=== PATIENT | male | born 1960 | race Caucasian/White ===

== ENCOUNTER 2021-04-24 18:49 | Inpatient (IN) ==
[2021-04-24] MEDS ORDERED: *HR* Succinylcholine 200 MG/10 ML VIAL IVP ONE (19:17)
[2021-04-24] MEDS ORDERED: *HR* Rocuronium Bromide 50 MG/5 ML VIAL ONE (19:17)
[2021-04-24] MEDS ORDERED: *HR* Propofol 200 MG/20 ML VIAL IVP ONE (19:18)
[2021-04-24] MEDS ORDERED: *HR* Midazolam HCl 2 MG/2 ML VIAL ONE (19:22)
[2021-04-24] MEDS ORDERED: *HR* FentaNYL (PF) 100 MCG/2 ML VIAL ONE (19:22)
[2021-04-24] MEDS ORDERED: Dexmedetomidine HCl 400 MCG/100 ML MLS IVC ONE (20:56)
[2021-04-24] MEDS ORDERED: Lidocaine Jelly 6ml 1 APPL/6 ML JEL.PF.APP ONE (21:31)
[2021-04-24] MEDS ORDERED: Lidocaine/EPI 1:100k 1% 50 ML VIAL ONE (21:31)
[2021-04-24] MEDS ORDERED: Naloxone 0.4 MG/ML INJ IVP PRN (22:04)
[2021-04-24] MEDS ORDERED: Artificial Tears SOLN 15 ML BOTTLE BOTH EYES PRN (22:09)
[2021-04-24] MEDS: Norepinephrine 4 MG/254 ML IV.SOLN IVC SCH (22:21)
[2021-04-24] MEDS: FentaNYL (PF) 1,000 MCG/100 ML IV.SOLN IVC SCH (22:29)
[2021-04-24] MEDS: Midazolam HCl 50 MG/100 ML IV.SOLN IVC SCH (22:29)
[2021-04-24 22:41] LABS: ABG Base Excess 7 mEq/L (-2 to 3); ABG HCO3 33 mEq/L (21-27); ABG Oxygen Saturation 100 % (95-98); ABG PCO2 54 mmHg (35-45); ABG PO2 404 mmHg (85-104); ABG TCO2 35 mEq/L (20-26); Blood Gas Modality ASSIST CONTROL; Blood Gas VT 450 cc
[2021-04-24] MEDS: Artificial Tears SOLN 15 ML BOTTLE BOTH EYES SCH (23:10)
[2021-04-25] MEDS: FentaNYL (PF) 1,000 MCG/100 ML IV.SOLN IVC SCH ×4 (02:15→22:00)
[2021-04-25] MEDS: Artificial Tears SOLN 15 ML BOTTLE BOTH EYES SCH ×6 (03:07→23:03)
[2021-04-25] MEDS: Norepinephrine 4 MG/254 ML IV.SOLN IVC SCH ×3 (03:08→19:22)
[2021-04-25 03:41] LABS: Basophils % 0.2 %; Hematocrit 35.7 % (37.5-50.1); Hemoglobin 11.3 g/dL (12.9-16.9); Immature Granulocytes % 1.3 % (0-4); Lymphocytes # 1.7 K/mcL (0.6-4.6); Lymphocytes % 9.2 %; Mean Corpuscular HGB Conc 31.7 g/dL (31.6-35.5); Mean Corpuscular Hemoglobin 30.6 pg (28.0-33.3); Mean Corpuscular Volume 96.7 fL (83.0-100.0); Mean Platelet Volume 9.9 fL (9.4-12.4); Monocytes # 0.5 K/mcL (0.0-1.3); Monocytes % 2.9 %; Neutrophils # 16.1 K/mcL (1.6-8.9); Platelet Count 193 K/mcL (140-400); Red Blood Count 3.69 M/mcL (4.19-5.50); Red Cell Distribution Width 15.9 % (11.5-14.5); Segmented Neutrophils % 86.4 %; White Blood Count 18.6 K/mcL (4.3-11.1)
[2021-04-25 03:49] LABS: Alanine Aminotransferase 26 Units/L (7-52); Albumin 2.7 g/dL (3.5-5.7); Alkaline Phosphatase 64 Units/L (34-104); Aspartate Amino Transferase 23 Units/L (13-39); BUN/Creatinine Ratio 26 (6-26); Bilirubin,Direct 0.1 mg/dL (0.0-0.2); Bilirubin,Indirect 0.4 mg/dL (0.0-1.0); Bilirubin,Total 0.5 mg/dL (0.3-1.0); Blood Urea Nitrogen 25 mg/dL (8-23); Calcium 8.7 mg/dL (8.6-10.3); Carbon Dioxide 32 mEq/L (23-29); Chloride 103 mEq/L (98-107); Globulin 2.6 g/dL (2.4-3.5); Glucose 156 mg/dL (70-105); INR 1.2; Magnesium 2.1 mg/dL (1.6-2.6); Osmolality,Calculated 300 (280-300); Potassium 4.7 mEq/L (3.5-5.1); Prothrombin Time 13.4 Seconds (9.4-12.1); Sodium 141 mEq/L (136-145); Total Protein 5.3 g/dL (6.4-8.9); eGFR For African Americans > 60 (> 60); eGFR For Non-African Americans > 60 (> 60)
[2021-04-25] MEDS: Ipratropium/Albuterol Neb 3 ML IH SCH ×4 (03:58→19:57)
[2021-04-25 04:25] LABS: ABG Base Excess 6 mEq/L (-2 to 3); ABG HCO3 31 mEq/L (21-27); ABG Oxygen Saturation 96 % (95-98); ABG PCO2 44 mmHg (35-45); ABG PH 7.45 pH Units (7.32-7.45); ABG PO2 77 mmHg (85-104); ABG TCO2 32 mEq/L (20-26); Blood Gas Modality ASSIST CONTROL; Blood Gas VT 450 cc
[2021-04-25] MEDS ORDERED: methylPREDNISolone 125 MG/2 ML VIAL IVP SCH (08:00)
[2021-04-25] MEDS: Chlorhexidine Rinse 15 ML MOUTHWASH MM SCH ×2 (08:14→19:21)
[2021-04-25] MEDS: Piperacillin/Tazobactam 3.375 GM in 0.9 % Sodium Chloride Mini Bag 100 ML IVPB SCH ×3 (08:15→23:10)
[2021-04-25] MEDS: Pantoprazole 40 MG VIAL IVP SCH (08:16)
[2021-04-25] MEDS ORDERED: *HR* Metoprolol 5 MG/5 ML VIAL IVP ONE (14:36)
[2021-04-25 15:26] LABS: BUN/Creatinine Ratio 28 (6-26); Blood Urea Nitrogen 34 mg/dL (8-23); Calcium 8.9 mg/dL (8.6-10.3); Carbon Dioxide 32 mEq/L (23-29); Chloride 104 mEq/L (98-107); Glucose 159 mg/dL (70-105); Osmolality,Calculated 303 (280-300); Potassium 4.9 mEq/L (3.5-5.1); Sodium 141 mEq/L (136-145); eGFR For African Americans > 60 (> 60); eGFR For Non-African Americans > 60 (> 60)
[2021-04-25] MEDS: methylPREDNISolone 125 MG/2 ML VIAL IVP SCH (17:56)
[2021-04-25] MEDS: *HR* Heparin 5,000 UNIT/ML VIAL SQ SCH (17:56)
[2021-04-25] MEDS: Midazolam HCl 50 MG/100 ML IV.SOLN IVC SCH (19:17)
[2021-04-26] MEDS: FentaNYL (PF) 1,000 MCG/100 ML IV.SOLN IVC SCH ×3 (03:19→20:10)
[2021-04-26] MEDS: Artificial Tears SOLN 15 ML BOTTLE BOTH EYES SCH ×6 (03:20→23:28)
[2021-04-26 03:32] LABS: Basophils % 0.2 %; Hematocrit 38.3 % (37.5-50.1); Hemoglobin 11.8 g/dL (12.9-16.9); Immature Granulocytes % 1.8 % (0-4); Lymphocytes # 1.2 K/mcL (0.6-4.6); Lymphocytes % 8.3 %; Mean Corpuscular HGB Conc 30.8 g/dL (31.6-35.5); Mean Corpuscular Hemoglobin 29.9 pg (28.0-33.3); Mean Platelet Volume 9.9 fL (9.4-12.4); Monocytes % 6.7 %; Neutrophils # 11.7 K/mcL (1.6-8.9); Platelet Count 163 K/mcL (140-400); Red Blood Count 3.95 M/mcL (4.19-5.50); Red Cell Distribution Width 15.6 % (11.5-14.5); White Blood Count 14.1 K/mcL (4.3-11.1)
[2021-04-26] MEDS: Ipratropium/Albuterol Neb 3 ML IH SCH ×4 (03:54→21:48)
[2021-04-26 04:01] LABS: ABG Base Excess 7 mEq/L (-2 to 3); ABG HCO3 34 mEq/L (21-27); ABG Oxygen Saturation 96 % (95-98); ABG PCO2 63 mmHg (35-45); ABG PH 7.34 pH Units (7.32-7.45); ABG PO2 89 mmHg (85-104); ABG TCO2 36 mEq/L (20-26); Blood Gas Modality ASSIST CONTROL; Blood Gas VT 450 cc
[2021-04-26 04:14] LABS: Alanine Aminotransferase 30 Units/L (7-52); Alkaline Phosphatase 63 Units/L (34-104); Aspartate Amino Transferase 39 Units/L (13-39); BUN/Creatinine Ratio 35 (6-26); Bilirubin,Total 0.3 mg/dL (0.3-1.0); Blood Urea Nitrogen 34 mg/dL (8-23); Calcium 9.1 mg/dL (8.6-10.3); Carbon Dioxide 32 mEq/L (23-29); Chloride 105 mEq/L (98-107); Globulin 2.9 g/dL (2.4-3.5); Glucose 151 mg/dL (70-105); Magnesium 2.3 mg/dL (1.6-2.6); Osmolality,Calculated 307 (280-300); Phosphorous 3.1 mg/dL (2.7-4.5); Potassium 4.4 mEq/L (3.5-5.1); Sodium 143 mEq/L (136-145); Total Protein 5.9 g/dL (6.4-8.9); eGFR For African Americans > 60 (> 60); eGFR For Non-African Americans > 60 (> 60)
[2021-04-26] MEDS: *HR* Heparin 5,000 UNIT/ML VIAL SQ SCH ×2 (05:01→17:09)
[2021-04-26] MEDS: methylPREDNISolone 125 MG/2 ML VIAL IVP SCH ×2 (05:01→17:09)
[2021-04-26] MEDS: Pantoprazole 40 MG VIAL IVP SCH (08:34)
[2021-04-26] MEDS: Piperacillin/Tazobactam 3.375 GM in 0.9 % Sodium Chloride Mini Bag 100 ML IVPB SCH ×3 (08:35→23:28)
[2021-04-26] MEDS ORDERED: D10% in Water 500 ML IVC PRN (11:44)
[2021-04-26] MEDS: Chlorhexidine Rinse 15 ML MOUTHWASH MM SCH ×2 (15:26→20:37)
[2021-04-26] MEDS ORDERED: Piperacillin/Tazobactam 3.375 GM VIAL ONE (17:00)
[2021-04-26] MEDS ORDERED: Clinimix E 5%-15% SOLUTION 2,000 ML with MVI, adult with vitamin K 10 ML IVC SCH (17:00)
[2021-04-26] MEDS: Norepinephrine 4 MG/254 ML IV.SOLN IVC SCH ×3 (17:40→21:15)
[2021-04-26] MEDS: Midazolam HCl 50 MG/100 ML IV.SOLN IVC SCH (21:15)
[2021-04-27] MEDS: Artificial Tears SOLN 15 ML BOTTLE BOTH EYES SCH ×6 (03:03→23:36)
[2021-04-27] MEDS: Norepinephrine 4 MG/254 ML IV.SOLN IVC SCH ×3 (03:03→20:30)
[2021-04-27] MEDS: Ipratropium/Albuterol Neb 3 ML IH SCH ×4 (03:51→20:22)
[2021-04-27 03:58] LABS: ABG Base Excess 6 mEq/L (-2 to 3); ABG HCO3 33 mEq/L (21-27); ABG Oxygen Saturation 95 % (95-98); ABG PCO2 57 mmHg (35-45); ABG PH 7.37 pH Units (7.32-7.45); ABG PO2 79 mmHg (85-104); ABG TCO2 35 mEq/L (20-26); Blood Gas VT 450 cc
[2021-04-27 04:35] LABS: Basophils % 0.2 %; Hematocrit 35.7 % (37.5-50.1); Hemoglobin 11.1 g/dL (12.9-16.9); Immature Granulocytes % 1.3 % (0-4); Lymphocytes # 0.8 K/mcL (0.6-4.6); Mean Corpuscular HGB Conc 31.1 g/dL (31.6-35.5); Mean Corpuscular Hemoglobin 30.2 pg (28.0-33.3); Mean Platelet Volume 10.2 fL (9.4-12.4); Monocytes % 8.6 %; Neutrophils # 9.3 K/mcL (1.6-8.9); Platelet Count 141 K/mcL (140-400); Red Blood Count 3.68 M/mcL (4.19-5.50); Red Cell Distribution Width 15.9 % (11.5-14.5); Segmented Neutrophils % 82.9 %; White Blood Count 11.2 K/mcL (4.3-11.1)
[2021-04-27 04:48] LABS: BUN/Creatinine Ratio 37 (6-26); Blood Urea Nitrogen 32 mg/dL (8-23); Calcium 8.7 mg/dL (8.6-10.3); Carbon Dioxide 34 mEq/L (23-29); Chloride 106 mEq/L (98-107); Glucose 171 mg/dL (70-105); Magnesium 2.3 mg/dL (1.6-2.6); Osmolality,Calculated 309 (280-300); Phosphorous 2.9 mg/dL (2.7-4.5); Potassium 4.1 mEq/L (3.5-5.1); Sodium 144 mEq/L (136-145); Triglycerides 187 mg/dL (< 150); eGFR For African Americans > 60 (> 60); eGFR For Non-African Americans > 60 (> 60)
[2021-04-27] MEDS: methylPREDNISolone 125 MG/2 ML VIAL IVP SCH ×2 (05:12→17:08)
[2021-04-27] MEDS: *HR* Heparin 5,000 UNIT/ML VIAL SQ SCH ×2 (05:12→17:08)
[2021-04-27] MEDS: FentaNYL (PF) 1,000 MCG/100 ML IV.SOLN IVC SCH (05:12)
[2021-04-27] MEDS: Midazolam HCl 50 MG/100 ML IV.SOLN IVC SCH (05:13)
[2021-04-27] MEDS: Chlorhexidine Rinse 15 ML MOUTHWASH MM SCH ×2 (07:53→20:29)
[2021-04-27] MEDS: Piperacillin/Tazobactam 3.375 GM in 0.9 % Sodium Chloride Mini Bag 100 ML IVPB SCH ×3 (07:53→23:53)
[2021-04-27] MEDS: Pantoprazole 40 MG VIAL IVP SCH (07:53)
[2021-04-27] MEDS: Insulin LISPRO 300 UNITS/3 ML VIAL SUBQ SCH ×4 (12:30→23:36)
[2021-04-27] MEDS ORDERED: Clinimix E 5%-15% SOLUTION 2,000 ML with MVI, adult with vitamin K 10 ML IVC SCH (17:00)
[2021-04-27] MEDS: Dexmedetomidine HCl 400 MCG/100 ML MLS IVC SCH (17:07)
[2021-04-27 22:10] LABS: ABG Base Excess 3 mEq/L (-2 to 3); ABG HCO3 35 mEq/L (21-27); ABG Oxygen Saturation 95 % (95-98); ABG PCO2 95 mmHg (35-45); ABG PH 7.17 pH Units (7.32-7.45); ABG PO2 103 mmHg (85-104); ABG TCO2 38 mEq/L (20-26)
[2021-04-28] MEDS: Artificial Tears SOLN 15 ML BOTTLE BOTH EYES SCH ×6 (03:19→23:12)
[2021-04-28] MEDS: Dexmedetomidine HCl 400 MCG/100 ML MLS IVC SCH ×2 (03:47→15:04)
[2021-04-28 04:04] LABS: Basophils % 0.2 %; Hematocrit 35.1 % (37.5-50.1); Hemoglobin 10.8 g/dL (12.9-16.9); Immature Granulocytes % 1.6 % (0-4); Lymphocytes # 0.7 K/mcL (0.6-4.6); Lymphocytes % 7.1 %; Mean Corpuscular HGB Conc 30.8 g/dL (31.6-35.5); Mean Corpuscular Hemoglobin 30.5 pg (28.0-33.3); Mean Corpuscular Volume 99.2 fL (83.0-100.0); Monocytes # 0.9 K/mcL (0.0-1.3); Monocytes % 8.9 %; Neutrophils # 8.2 K/mcL (1.6-8.9); Platelet Count 121 K/mcL (140-400); Red Blood Count 3.54 M/mcL (4.19-5.50); Red Cell Distribution Width 15.3 % (11.5-14.5); Segmented Neutrophils % 82.2 %
[2021-04-28 04:21] LABS: VBG Ionized Calcium 1.29 mmol/L (1.15-1.35)
[2021-04-28 04:22] LABS: BUN/Creatinine Ratio 38 (6-26); Blood Urea Nitrogen 42 mg/dL (8-23); Calcium 9.1 mg/dL (8.6-10.3); Carbon Dioxide 37 mEq/L (23-29); Chloride 104 mEq/L (98-107); Glucose 144 mg/dL (70-105); Magnesium 2.3 mg/dL (1.6-2.6); Osmolality,Calculated 315 (280-300); Phosphorous 1.8 mg/dL (2.7-4.5); Potassium 3.9 mEq/L (3.5-5.1); Sodium 146 mEq/L (136-145); eGFR For African Americans > 60 (> 60); eGFR For Non-African Americans > 60 (> 60)
[2021-04-28] MEDS: Ipratropium/Albuterol Neb 3 ML IH SCH ×4 (04:25→21:28)
[2021-04-28] MEDS: Insulin LISPRO 300 UNITS/3 ML VIAL SUBQ SCH ×6 (04:47→23:28)
[2021-04-28 04:48] LABS: ABG Base Excess 11 mEq/L (-2 to 3); ABG HCO3 36 mEq/L (21-27); ABG Oxygen Saturation 98 % (95-98); ABG PCO2 46 mmHg (35-45); ABG PO2 102 mmHg (85-104); ABG TCO2 37 mEq/L (20-26); Blood Gas VT 450 cc
[2021-04-28] MEDS: *HR* Heparin 5,000 UNIT/ML VIAL SQ SCH ×2 (05:07→16:46)
[2021-04-28] MEDS: methylPREDNISolone 125 MG/2 ML VIAL IVP SCH ×2 (05:07→16:45)
[2021-04-28] MEDS: Pantoprazole 40 MG VIAL IVP SCH (07:43)
[2021-04-28] MEDS: Piperacillin/Tazobactam 3.375 GM in 0.9 % Sodium Chloride Mini Bag 100 ML IVPB SCH ×3 (07:44→23:28)
[2021-04-28] MEDS: Chlorhexidine Rinse 15 ML MOUTHWASH MM SCH ×2 (07:44→20:32)
[2021-04-28] MEDS ORDERED: *HR* LORazepam 2 MG/ML VIAL IVP PRN ×4 (08:52)
[2021-04-28] MEDS: *HR* LORazepam 2 MG/ML VIAL IVP SCH ×4 (11:10→23:28)
[2021-04-28] MEDS ORDERED: Isovue-370 500 ML BOTTLE IVP ONE (13:07)
[2021-04-28] MEDS ORDERED: Perflutren Lipid Microsphere 1.3 ML in 0.9 % Sodium Chloride 8.7 ML IVP PRN (14:38)
[2021-04-28] MEDS: Nicotine 21 MG PATCH.TD24 TD SCH (15:05)
[2021-04-28] MEDS ORDERED: Clinimix E 5%-15% SOLUTION 2,000 ML with MVI, adult with vitamin K 10 ML IVC SCH (17:00)
[2021-04-28] MEDS: Norepinephrine 4 MG/254 ML IV.SOLN IVC SCH ×3 (20:31→23:29)
[2021-04-28] MEDS: FentaNYL (PF) 1,000 MCG/100 ML IV.SOLN IVC SCH (20:32)
[2021-04-28] MEDS: Midazolam HCl 50 MG/100 ML IV.SOLN IVC SCH (23:12)
[2021-04-29] MEDS: Ipratropium/Albuterol Neb 3 ML IH SCH ×4 (03:15→22:32)
[2021-04-29] MEDS: *HR* LORazepam 2 MG/ML VIAL IVP SCH ×8 (03:43→22:16)
[2021-04-29] MEDS: Artificial Tears SOLN 15 ML BOTTLE BOTH EYES SCH ×5 (03:43→20:29)
[2021-04-29 04:19] LABS: Hematocrit 33.6 % (37.5-50.1); Immature Granulocytes % 0.7 % (0-4); Lymphocytes # 0.5 K/mcL (0.6-4.6); Lymphocytes % 6.9 %; Mean Corpuscular HGB Conc 32.7 g/dL (31.6-35.5); Mean Corpuscular Hemoglobin 30.8 pg (28.0-33.3); Mean Corpuscular Volume 94.1 fL (83.0-100.0); Mean Platelet Volume 9.6 fL (9.4-12.4); Monocytes # 0.4 K/mcL (0.0-1.3); Monocytes % 5.4 %; Neutrophils # 5.8 K/mcL (1.6-8.9); Platelet Count 104 K/mcL (140-400); Red Blood Count 3.57 M/mcL (4.19-5.50); Red Cell Distribution Width 15.4 % (11.5-14.5); White Blood Count 6.7 K/mcL (4.3-11.1)
[2021-04-29] MEDS: Insulin LISPRO 300 UNITS/3 ML VIAL SUBQ SCH ×6 (04:30→20:29)
[2021-04-29 04:35] LABS: BUN/Creatinine Ratio 43 (6-26); Blood Urea Nitrogen 32 mg/dL (8-23); Calcium 8.6 mg/dL (8.6-10.3); Carbon Dioxide 33 mEq/L (23-29); Chloride 102 mEq/L (98-107); Glucose 201 mg/dL (70-105); Magnesium 2.1 mg/dL (1.6-2.6); Osmolality,Calculated 307 (280-300); Phosphorous 2.7 mg/dL (2.7-4.5); Potassium 3.1 mEq/L (3.5-5.1); Sodium 142 mEq/L (136-145); eGFR For African Americans > 60 (> 60); eGFR For Non-African Americans > 60 (> 60)
[2021-04-29 04:47] LABS: ABG Base Excess 6 mEq/L (-2 to 3); ABG HCO3 31 mEq/L (21-27); ABG Oxygen Saturation 97 % (95-98); ABG PCO2 46 mmHg (35-45); ABG PH 7.43 pH Units (7.32-7.45); ABG PO2 87 mmHg (85-104); ABG TCO2 33 mEq/L (20-26); Blood Gas Modality ASSIST CONTROL; Blood Gas VT 450 cc
[2021-04-29] MEDS: *HR* Heparin 5,000 UNIT/ML VIAL SQ SCH ×2 (05:01→17:02)
[2021-04-29] MEDS: methylPREDNISolone 125 MG/2 ML VIAL IVP SCH ×2 (05:01→17:02)
[2021-04-29] MEDS: Midazolam HCl 50 MG/100 ML IV.SOLN IVC SCH ×2 (06:05→18:49)
[2021-04-29] MEDS: Chlorhexidine Rinse 15 ML MOUTHWASH MM SCH ×2 (07:50→21:22)
[2021-04-29] MEDS ORDERED: Potassium Chloride 40 MEQ, Lidocaine 1% 2 ML in 0.9 % Sodium Chloride 500 ML IVPB ONE (07:50)
[2021-04-29] MEDS: Piperacillin/Tazobactam 3.375 GM in 0.9 % Sodium Chloride Mini Bag 100 ML IVPB SCH ×2 (07:50→16:13)
[2021-04-29] MEDS: Pantoprazole 40 MG VIAL IVP SCH (07:50)
[2021-04-29] MEDS: Nicotine 21 MG PATCH.TD24 TD SCH (07:51)
[2021-04-29] MEDS: Norepinephrine 4 MG/254 ML IV.SOLN IVC SCH ×2 (10:08→17:22)
[2021-04-29] MEDS ORDERED: Clinimix E 5%-15% SOLUTION 2,000 ML with MVI, adult with vitamin K 10 ML IVC SCH (17:00)
[2021-04-29] MEDS ORDERED: *HR* Dextrose 50 % in Water (Syg) 50 ML SYRINGE IVP ONE (20:08)
[2021-04-29] MEDS ORDERED: *HR* Dextrose 50 % in Water (Syg) 50 ML SYRINGE ONE (20:14)
[2021-04-29 20:59] LABS: BUN/Creatinine Ratio 38 (6-26); Blood Urea Nitrogen 25 mg/dL (8-23); Carbon Dioxide 35 mEq/L (23-29); Chloride 100 mEq/L (98-107); Glucose 135 mg/dL (70-105); Osmolality,Calculated 296 (280-300); Potassium 3.9 mEq/L (3.5-5.1); Sodium 140 mEq/L (136-145); eGFR For African Americans > 60 (> 60); eGFR For Non-African Americans > 60 (> 60)
[2021-04-30] MEDS: FentaNYL (PF) 1,000 MCG/100 ML IV.SOLN IVC SCH (00:12)
[2021-04-30] MEDS: Norepinephrine 4 MG/254 ML IV.SOLN IVC SCH ×2 (00:12→17:21)
[2021-04-30] MEDS: *HR* LORazepam 2 MG/ML VIAL IVP SCH ×12 (00:20→22:36)
[2021-04-30] MEDS: Piperacillin/Tazobactam 3.375 GM in 0.9 % Sodium Chloride Mini Bag 100 ML IVPB SCH ×3 (00:21→16:07)
[2021-04-30] MEDS: Artificial Tears SOLN 15 ML BOTTLE BOTH EYES SCH ×6 (00:26→20:47)
[2021-04-30] MEDS: Insulin LISPRO 300 UNITS/3 ML VIAL SUBQ SCH ×6 (00:27→20:46)
[2021-04-30] MEDS: Ipratropium/Albuterol Neb 3 ML IH SCH ×4 (03:40→21:54)
[2021-04-30 04:05] LABS: BUN/Creatinine Ratio 38 (6-26); Blood Urea Nitrogen 25 mg/dL (8-23); Calcium 8.9 mg/dL (8.6-10.3); Carbon Dioxide 36 mEq/L (23-29); Chloride 100 mEq/L (98-107); Glucose 135 mg/dL (70-105); Magnesium 2.1 mg/dL (1.6-2.6); Osmolality,Calculated 294 (280-300); Phosphorous 2.9 mg/dL (2.7-4.5); Sodium 139 mEq/L (136-145); eGFR For African Americans > 60 (> 60); eGFR For Non-African Americans > 60 (> 60)
[2021-04-30 04:11] LABS: Basophils % 0.1 %; Lymphocytes % 4.6 %
[2021-04-30 04:13] LABS: Hematocrit 35.4 % (37.5-50.1); Hemoglobin 11.5 g/dL (12.9-16.9); Immature Granulocytes % 0.9 % (0-4); Immature Platelets 4.5 % (1.1-6.1); Lymphocytes # 0.5 K/mcL (0.6-4.6); Mean Corpuscular HGB Conc 32.5 g/dL (31.6-35.5); Mean Corpuscular Volume 92.4 fL (83.0-100.0); Mean Platelet Volume 10.8 fL (9.4-12.4); Monocytes # 0.3 K/mcL (0.0-1.3); Monocytes % 2.5 %; Neutrophils # 9.9 K/mcL (1.6-8.9); Platelet Count 111 K/mcL (140-400); Red Blood Count 3.83 M/mcL (4.19-5.50); Red Cell Distribution Width 15.3 % (11.5-14.5); Segmented Neutrophils % 91.9 %; White Blood Count 10.8 K/mcL (4.3-11.1)
[2021-04-30 04:17] LABS: VBG Ionized Calcium 1.21 mmol/L (1.15-1.35)
[2021-04-30 04:30] LABS: ABG Base Excess 7 mEq/L (-2 to 3); ABG HCO3 33 mEq/L (21-27); ABG Oxygen Saturation 97 % (95-98); ABG PCO2 53 mmHg (35-45); ABG PO2 90 mmHg (85-104); ABG TCO2 34 mEq/L (20-26); Blood Gas VT 450 cc
[2021-04-30] MEDS: methylPREDNISolone 125 MG/2 ML VIAL IVP SCH (06:12)
[2021-04-30] MEDS: *HR* Heparin 5,000 UNIT/ML VIAL SQ SCH ×2 (06:13→16:15)
[2021-04-30] MEDS: Chlorhexidine Rinse 15 ML MOUTHWASH MM SCH ×2 (07:43→20:46)
[2021-04-30] MEDS: Nicotine 21 MG PATCH.TD24 TD SCH (07:43)
[2021-04-30] MEDS: Pantoprazole 40 MG VIAL IVP SCH (07:44)
[2021-04-30] MEDS: Midazolam HCl 50 MG/100 ML IV.SOLN IVC SCH (16:06)
[2021-04-30] MEDS: MethylPREDNISolone 40 MG/ML VIAL IVP SCH (16:08)
[2021-04-30] MEDS ORDERED: Clinimix E 5%-15% SOLUTION 2,000 ML with MVI, adult with vitamin K 10 ML IVC SCH (17:00)
[2021-05-01] MEDS: *HR* LORazepam 2 MG/ML VIAL IVP SCH ×9 (01:53→19:48)
[2021-05-01] MEDS: Piperacillin/Tazobactam 3.375 GM in 0.9 % Sodium Chloride Mini Bag 100 ML IVPB SCH ×3 (01:54→17:05)
[2021-05-01] MEDS: Insulin LISPRO 300 UNITS/3 ML VIAL SUBQ SCH ×6 (01:55→19:30)
[2021-05-01] MEDS: Artificial Tears SOLN 15 ML BOTTLE BOTH EYES SCH ×6 (01:56→19:30)
[2021-05-01] MEDS: Ipratropium/Albuterol Neb 3 ML IH SCH ×4 (03:33→22:13)
[2021-05-01 04:36] LABS: Hematocrit 33.9 % (37.5-50.1); Immature Platelets 6.3 % (1.1-6.1); Mean Corpuscular HGB Conc 32.4 g/dL (31.6-35.5); Mean Corpuscular Hemoglobin 29.8 pg (28.0-33.3); Mean Corpuscular Volume 91.9 fL (83.0-100.0); Mean Platelet Volume 11.3 fL (9.4-12.4); Red Blood Count 3.69 M/mcL (4.19-5.50); Red Cell Distribution Width 15.5 % (11.5-14.5); White Blood Count 13.3 K/mcL (4.3-11.1)
[2021-05-01 05:03] LABS: BUN/Creatinine Ratio 45 (6-26); Blood Urea Nitrogen 29 mg/dL (8-23); Calcium 8.5 mg/dL (8.6-10.3); Carbon Dioxide 30 mEq/L (23-29); Chloride 102 mEq/L (98-107); Glucose 131 mg/dL (70-105); Osmolality,Calculated 292 (280-300); Potassium 3.9 mEq/L (3.5-5.1); Sodium 137 mEq/L (136-145); eGFR For African Americans > 60 (> 60); eGFR For Non-African Americans > 60 (> 60)
[2021-05-01] MEDS: *HR* Heparin 5,000 UNIT/ML VIAL SQ SCH ×2 (05:26→17:04)
[2021-05-01] MEDS: MethylPREDNISolone 40 MG/ML VIAL IVP SCH ×2 (05:26→09:01)
[2021-05-01] MEDS: FentaNYL (PF) 1,000 MCG/100 ML IV.SOLN IVC SCH ×2 (07:20→19:29)
[2021-05-01] MEDS: Pantoprazole 40 MG VIAL IVP SCH (09:01)
[2021-05-01] MEDS: Chlorhexidine Rinse 15 ML MOUTHWASH MM SCH ×2 (09:01→19:40)
[2021-05-01] MEDS: Nicotine 21 MG PATCH.TD24 TD SCH (09:03)
[2021-05-01] MEDS: Midazolam HCl 50 MG/100 ML IV.SOLN IVC SCH (13:00)
[2021-05-01] MEDS ORDERED: Dextrose Gel 15 GM/37.5 ML TUBE PO PRN ×2 (13:43)
[2021-05-01] MEDS ORDERED: D5% in Water 1,000 ML IVC PRN (13:43)
[2021-05-01] MEDS: *HR* Dextrose 50 % in Water (Syg) 50 ML SYRINGE IVP PRN ×2 (13:59→17:05)
[2021-05-01] MEDS ORDERED: Clinimix E 5%-15% SOLUTION 2,000 ML with MVI, adult with vitamin K 10 ML IVC SCH (17:00)
[2021-05-01] MEDS: Norepinephrine 4 MG/254 ML IV.SOLN IVC SCH (19:47)
[2021-05-02] MEDS: Insulin LISPRO 300 UNITS/3 ML VIAL SUBQ SCH ×7 (00:01→23:28)
[2021-05-02] MEDS: Piperacillin/Tazobactam 3.375 GM in 0.9 % Sodium Chloride Mini Bag 100 ML IVPB SCH ×4 (00:01→23:22)
[2021-05-02] MEDS: Midazolam HCl 50 MG/100 ML IV.SOLN IVC SCH ×2 (01:05→20:29)
[2021-05-02] MEDS: Ipratropium/Albuterol Neb 3 ML IH SCH ×4 (03:25→20:18)
[2021-05-02 03:54] LABS: VBG Ionized Calcium 1.24 mmol/L (1.15-1.35)
[2021-05-02] MEDS: FentaNYL (PF) 1,000 MCG/100 ML IV.SOLN IVC SCH ×2 (03:56→21:37)
[2021-05-02] MEDS: Artificial Tears SOLN 15 ML BOTTLE BOTH EYES SCH ×7 (04:08→23:22)
[2021-05-02] MEDS: *HR* LORazepam 2 MG/ML VIAL IVP SCH ×7 (04:08→23:21)
[2021-05-02 05:06] LABS: BUN/Creatinine Ratio 51 (6-26); Blood Urea Nitrogen 34 mg/dL (8-23); Calcium 8.4 mg/dL (8.6-10.3); Carbon Dioxide 31 mEq/L (23-29); Chloride 103 mEq/L (98-107); Glucose 127 mg/dL (70-105); Magnesium 2.1 mg/dL (1.6-2.6); Osmolality,Calculated 293 (280-300); Phosphorous 2.7 mg/dL (2.7-4.5); Potassium 4.2 mEq/L (3.5-5.1); Sodium 137 mEq/L (136-145); eGFR For African Americans > 60 (> 60); eGFR For Non-African Americans > 60 (> 60)
[2021-05-02 05:08] LABS: Hemoglobin 10.5 g/dL (12.9-16.9); Mean Platelet Volume 11.1 fL (9.4-12.4)
[2021-05-02 05:10] LABS: Hematocrit 31.8 % (37.5-50.1); Immature Platelets 4.8 % (1.1-6.1); Mean Corpuscular Hemoglobin 30.7 pg (28.0-33.3); Red Blood Count 3.42 M/mcL (4.19-5.50); Red Cell Distribution Width 15.6 % (11.5-14.5); White Blood Count 13.1 K/mcL (4.3-11.1)
[2021-05-02] MEDS: *HR* Heparin 5,000 UNIT/ML VIAL SQ SCH ×2 (05:48→16:11)
[2021-05-02] MEDS: Chlorhexidine Rinse 15 ML MOUTHWASH MM SCH ×2 (08:14→19:41)
[2021-05-02] MEDS: Pantoprazole 40 MG VIAL IVP SCH (08:14)
[2021-05-02] MEDS: MethylPREDNISolone 40 MG/ML VIAL IVP SCH (08:14)
[2021-05-02] MEDS: Nicotine 21 MG PATCH.TD24 TD SCH (08:14)
[2021-05-02] MEDS: *HR* Dextrose 50 % in Water (Syg) 50 ML SYRINGE IVP PRN ×2 (08:15→16:18)
[2021-05-02] MEDS ORDERED: Clinimix E 5%-15% SOLUTION 2,000 ML with MVI, adult with vitamin K 10 ML IVC SCH (17:00)
[2021-05-03] MEDS: Artificial Tears SOLN 15 ML BOTTLE BOTH EYES SCH ×5 (03:33→19:40)
[2021-05-03] MEDS: *HR* LORazepam 2 MG/ML VIAL IVP SCH ×5 (03:34→19:40)
[2021-05-03 04:43] LABS: Hemoglobin 9.9 g/dL (12.9-16.9)
[2021-05-03 04:44] LABS: VBG Ionized Calcium 1.25 mmol/L (1.15-1.35)
[2021-05-03 04:45] LABS: Immature Platelets 5.6 % (1.1-6.1); Mean Corpuscular HGB Conc 31.9 g/dL (31.6-35.5); Mean Corpuscular Hemoglobin 29.9 pg (28.0-33.3); Mean Corpuscular Volume 93.7 fL (83.0-100.0); Mean Platelet Volume 11.1 fL (9.4-12.4); Red Blood Count 3.31 M/mcL (4.19-5.50); Red Cell Distribution Width 15.3 % (11.5-14.5); White Blood Count 11.7 K/mcL (4.3-11.1)
[2021-05-03] MEDS: Midazolam HCl 50 MG/100 ML IV.SOLN IVC SCH ×2 (04:45→15:39)
[2021-05-03] MEDS: Insulin LISPRO 300 UNITS/3 ML VIAL SUBQ SCH ×5 (04:45→19:40)
[2021-05-03] MEDS: Ipratropium/Albuterol Neb 3 ML IH SCH ×4 (04:48→22:33)
[2021-05-03 05:02] LABS: BUN/Creatinine Ratio 52 (6-26); Blood Urea Nitrogen 35 mg/dL (8-23); Calcium 8.2 mg/dL (8.6-10.3); Carbon Dioxide 33 mEq/L (23-29); Chloride 100 mEq/L (98-107); Glucose 147 mg/dL (70-105); Osmolality,Calculated 293 (280-300); Sodium 136 mEq/L (136-145); eGFR For African Americans > 60 (> 60); eGFR For Non-African Americans > 60 (> 60)
[2021-05-03] MEDS: *HR* Heparin 5,000 UNIT/ML VIAL SQ SCH ×2 (06:01→16:22)
[2021-05-03] MEDS: Pantoprazole 40 MG VIAL IVP SCH (07:38)
[2021-05-03] MEDS: Chlorhexidine Rinse 15 ML MOUTHWASH MM SCH ×2 (07:39→19:40)
[2021-05-03] MEDS: MethylPREDNISolone 40 MG/ML VIAL IVP SCH (07:39)
[2021-05-03] MEDS: Nicotine 21 MG PATCH.TD24 TD SCH (07:39)
[2021-05-03] MEDS: Piperacillin/Tazobactam 3.375 GM in 0.9 % Sodium Chloride Mini Bag 100 ML IVPB SCH ×2 (07:40→16:22)
[2021-05-03] MEDS: FentaNYL (PF) 1,000 MCG/100 ML IV.SOLN IVC SCH (11:44)
[2021-05-03] MEDS ORDERED: Clinimix E 5%-15% SOLUTION 2,000 ML with MVI, adult with vitamin K 10 ML, ZN/CU/MN/SE... IVC SCH (17:00)
[2021-05-04] MEDS: Piperacillin/Tazobactam 3.375 GM in 0.9 % Sodium Chloride Mini Bag 100 ML IVPB SCH ×4 (00:03→23:33)
[2021-05-04] MEDS: FentaNYL (PF) 1,000 MCG/100 ML IV.SOLN IVC SCH ×2 (00:04→11:23)
[2021-05-04] MEDS: Midazolam HCl 50 MG/100 ML IV.SOLN IVC SCH ×2 (00:04→07:32)
[2021-05-04] MEDS: Artificial Tears SOLN 15 ML BOTTLE BOTH EYES SCH ×7 (00:05→23:22)
[2021-05-04] MEDS: *HR* LORazepam 2 MG/ML VIAL IVP SCH ×8 (00:05→23:22)
[2021-05-04] MEDS: Insulin LISPRO 300 UNITS/3 ML VIAL SUBQ SCH ×7 (00:17→23:32)
[2021-05-04] MEDS: Ipratropium/Albuterol Neb 3 ML IH SCH ×4 (03:56→22:26)
[2021-05-04 04:22] LABS: VBG Ionized Calcium 1.21 mmol/L (1.15-1.35)
[2021-05-04 04:38] LABS: BUN/Creatinine Ratio 50 (6-26); Blood Urea Nitrogen 28 mg/dL (8-23); Calcium 8.3 mg/dL (8.6-10.3); Carbon Dioxide 35 mEq/L (23-29); Chloride 102 mEq/L (98-107); Glucose 119 mg/dL (70-105); Magnesium 1.8 mg/dL (1.6-2.6); Osmolality,Calculated 293 (280-300); Phosphorous 1.6 mg/dL (2.7-4.5); Potassium 3.6 mEq/L (3.5-5.1); Sodium 138 mEq/L (136-145); Triglycerides 146 mg/dL (< 150); eGFR For African Americans > 60 (> 60); eGFR For Non-African Americans > 60 (> 60)
[2021-05-04] MEDS: *HR* Heparin 5,000 UNIT/ML VIAL SQ SCH ×2 (06:02→16:46)
[2021-05-04] MEDS ORDERED: Potassium Phosphate 44 MEQ in 0.9 % Sodium Chloride 250 ML IVPB ONE (06:42)
[2021-05-04] MEDS: Pantoprazole 40 MG VIAL IVP SCH (08:02)
[2021-05-04] MEDS: Chlorhexidine Rinse 15 ML MOUTHWASH MM SCH ×2 (08:02→19:28)
[2021-05-04] MEDS: Nicotine 21 MG PATCH.TD24 TD SCH (08:03)
[2021-05-04 14:45] LABS: ABG Base Excess 4 mEq/L (-2 to 3); ABG HCO3 36 mEq/L (21-27); ABG Oxygen Saturation 93 % (95-98); ABG PCO2 101 mmHg (35-45); ABG PH 7.16 pH Units (7.32-7.45); ABG PO2 92 mmHg (85-104); ABG TCO2 39 mEq/L (20-26)
[2021-05-04] MEDS: Dexmedetomidine HCl 400 MCG/100 ML MLS IVC SCH (15:20)
[2021-05-04] MEDS ORDERED: Clinimix E 5%-15% SOLUTION 2,000 ML with MVI, adult with vitamin K 10 ML, ZN/CU/MN/SE... IVC SCH (17:00)
[2021-05-05] MEDS: Dexmedetomidine HCl 400 MCG/100 ML MLS IVC SCH ×5 (00:05→18:34)
[2021-05-05] MEDS: Ipratropium/Albuterol Neb 3 ML IH SCH ×4 (03:14→19:49)
[2021-05-05] MEDS: *HR* LORazepam 2 MG/ML VIAL IVP SCH (03:55)
[2021-05-05] MEDS: Artificial Tears SOLN 15 ML BOTTLE BOTH EYES SCH ×6 (03:55→23:29)
[2021-05-05] MEDS: Insulin LISPRO 300 UNITS/3 ML VIAL SUBQ SCH ×6 (03:56→23:29)
[2021-05-05 04:01] LABS: Hematocrit 30.3 % (37.5-50.1); Hemoglobin 9.7 g/dL (12.9-16.9); Mean Corpuscular Hemoglobin 30.2 pg (28.0-33.3); Mean Corpuscular Volume 94.4 fL (83.0-100.0); Mean Platelet Volume 11.2 fL (9.4-12.4); Red Blood Count 3.21 M/mcL (4.19-5.50); Red Cell Distribution Width 15.6 % (11.5-14.5); White Blood Count 10.6 K/mcL (4.3-11.1)
[2021-05-05 04:02] LABS: Platelet Count 87 K/mcL (140-400)
[2021-05-05 04:17] LABS: BUN/Creatinine Ratio 55 (6-26); Blood Urea Nitrogen 31 mg/dL (8-23); Calcium 8.3 mg/dL (8.6-10.3); Carbon Dioxide 36 mEq/L (23-29); Chloride 100 mEq/L (98-107); Glucose 179 mg/dL (70-105); Magnesium 1.9 mg/dL (1.6-2.6); Osmolality,Calculated 293 (280-300); Phosphorous 2.1 mg/dL (2.7-4.5); Potassium 4.3 mEq/L (3.5-5.1); Sodium 136 mEq/L (136-145); eGFR For African Americans > 60 (> 60); eGFR For Non-African Americans > 60 (> 60)
[2021-05-05] MEDS: *HR* Heparin 5,000 UNIT/ML VIAL SQ SCH ×2 (05:24→18:20)
[2021-05-05] MEDS: Chlorhexidine Rinse 15 ML MOUTHWASH MM SCH ×2 (07:11→20:06)
[2021-05-05] MEDS: Pantoprazole 40 MG VIAL IVP SCH (07:11)
[2021-05-05] MEDS: Piperacillin/Tazobactam 3.375 GM in 0.9 % Sodium Chloride Mini Bag 100 ML IVPB SCH (07:11)
[2021-05-05] MEDS: Nicotine 21 MG PATCH.TD24 TD SCH (07:12)
[2021-05-05] MEDS ORDERED: *HR* LORazepam 2 MG/ML VIAL IVP PRN (07:32)
[2021-05-05] MEDS ORDERED: Dextrose Gel 15 GM/37.5 ML TUBE PO PRN ×2 (10:08)
[2021-05-05] MEDS ORDERED: Clinimix E 5%-15% SOLUTION 2,000 ML with MVI, adult with vitamin K 10 ML, ZN/CU/MN/SE... IVC SCH ×2 (10:08→17:00)
[2021-05-05] MEDS ORDERED: Naloxone 0.4 MG/ML INJ IVP PRN (10:08)
[2021-05-05] MEDS ORDERED: D10% in Water 500 ML IVC PRN (10:08)
[2021-05-05] MEDS ORDERED: D5% in Water 1,000 ML IVC PRN (10:08)
[2021-05-05] MEDS ORDERED: Artificial Tears SOLN 15 ML BOTTLE BOTH EYES PRN (10:08)
[2021-05-05] MEDS ORDERED: 0.9 % Sodium Chloride 1,000 ML ONE (11:13)
[2021-05-05] MEDS ORDERED: Insulin LISPRO 300 UNITS/3 ML VIAL SUBQ SCH (12:00)
[2021-05-05] MEDS ORDERED: *HR* Phenylephrine 10 MG/ML VIAL IVC ONE (14:34)
[2021-05-05] MEDS ORDERED: *HR* Propofol 200 MG/20 ML VIAL IVP ONE (14:34)
[2021-05-05] MEDS ORDERED: Ketorolac 15 MG/ML VIAL IVP ONE (14:53)
[2021-05-05] MEDS ORDERED: Clinimix E 5%-15% SOLUTION 2,000 ML, Parenteral Amino Acid 10% 0 ML with MVI, adult wi... IVC SCH (17:00)
[2021-05-05] MEDS ORDERED: *HR* LORazepam 2 MG/ML VIAL IVP ONE (19:56)
[2021-05-06] MEDS ORDERED: *HR* LORazepam 2 MG/ML VIAL IVP ONE (00:58)
[2021-05-06] MEDS: Dexmedetomidine HCl 400 MCG/100 ML MLS IVC SCH ×2 (01:59→08:27)
[2021-05-06] MEDS: Insulin LISPRO 300 UNITS/3 ML VIAL SUBQ SCH ×6 (03:21→23:37)
[2021-05-06] MEDS: Ipratropium/Albuterol Neb 3 ML IH SCH ×4 (04:08→20:10)
[2021-05-06 04:20] LABS: ABG Base Excess 6 mEq/L (-2 to 3); ABG HCO3 31 mEq/L (21-27); ABG Oxygen Saturation 98 % (95-98); ABG PCO2 47 mmHg (35-45); ABG PH 7.43 pH Units (7.32-7.45); ABG PO2 107 mmHg (85-104); ABG TCO2 33 mEq/L (20-26); Blood Gas Modality AF; Blood Gas VT 400 cc
[2021-05-06] MEDS: Artificial Tears SOLN 15 ML BOTTLE BOTH EYES SCH ×6 (05:57→23:37)
[2021-05-06 06:41] LABS: Hemoglobin 9.7 g/dL (12.9-16.9); Mean Corpuscular HGB Conc 32.3 g/dL (31.6-35.5); Mean Corpuscular Hemoglobin 30.1 pg (28.0-33.3); Mean Corpuscular Volume 93.2 fL (83.0-100.0); Mean Platelet Volume 11.8 fL (9.4-12.4); Platelet Count 101 K/mcL (140-400); Red Blood Count 3.22 M/mcL (4.19-5.50); Red Cell Distribution Width 15.5 % (11.5-14.5); White Blood Count 14.8 K/mcL (4.3-11.1)
[2021-05-06] MEDS: *HR* Heparin 5,000 UNIT/ML VIAL SQ SCH ×2 (06:46→17:25)
[2021-05-06 07:23] LABS: BUN/Creatinine Ratio 50 (6-26); Blood Urea Nitrogen 21 mg/dL (8-23); Calcium 8.3 mg/dL (8.6-10.3); Carbon Dioxide 34 mEq/L (23-29); Chloride 99 mEq/L (98-107); Glucose 96 mg/dL (70-105); Osmolality,Calculated 283 (280-300); Potassium 3.8 mEq/L (3.5-5.1); Sodium 135 mEq/L (136-145); eGFR For African Americans > 60 (> 60); eGFR For Non-African Americans > 60 (> 60)
[2021-05-06 07:25] LABS: Magnesium 1.7 mg/dL (1.6-2.6); Phosphorous 2.3 mg/dL (2.7-4.5)
[2021-05-06] MEDS: Pantoprazole 40 MG VIAL IVP SCH (08:27)
[2021-05-06] MEDS: Nicotine 21 MG PATCH.TD24 TD SCH (08:28)
[2021-05-06] MEDS ORDERED: 0.9 % Sodium Chloride 500 ML ONE (09:53)
[2021-05-06] MEDS: Chlorhexidine Rinse 15 ML MOUTHWASH MM SCH ×2 (10:05→21:26)
[2021-05-06] MEDS: Albumin Human 5% 12.5 GM/250 ML IV.SOLN IVC SCH ×2 (10:30→14:45)
[2021-05-06] MEDS ORDERED: Clinimix E 5%-15% SOLUTION 2,000 ML with MVI, adult with vitamin K 10 ML, ZN/CU/MN/SE... IVC SCH (17:00)
[2021-05-07] MEDS: Ipratropium/Albuterol Neb 3 ML IH SCH ×4 (03:48→22:09)
[2021-05-07] MEDS: Dexmedetomidine HCl 400 MCG/100 ML MLS IVC SCH (04:29)
[2021-05-07] MEDS: Artificial Tears SOLN 15 ML BOTTLE BOTH EYES SCH ×6 (04:30→23:45)
[2021-05-07 04:37] LABS: Blood Urea Nitrogen 18 mg/dL (8-23); Calcium 8.3 mg/dL (8.6-10.3); Carbon Dioxide 33 mEq/L (23-29); Chloride 101 mEq/L (98-107); Glucose 107 mg/dL (70-105); Magnesium 1.8 mg/dL (1.6-2.6); Osmolality,Calculated 282 (280-300); Phosphorous 2.4 mg/dL (2.7-4.5); Potassium 3.6 mEq/L (3.5-5.1); Sodium 135 mEq/L (136-145)
[2021-05-07] MEDS: Insulin LISPRO 300 UNITS/3 ML VIAL SUBQ SCH ×5 (04:48→20:05)
[2021-05-07] MEDS: *HR* Heparin 5,000 UNIT/ML VIAL SQ SCH ×2 (04:49→17:15)
[2021-05-07 05:20] LABS: BUN/Creatinine Ratio 42 (6-26); eGFR For African Americans > 60 (> 60); eGFR For Non-African Americans > 60 (> 60)
[2021-05-07 05:44] LABS: Hematocrit 29.3 % (37.5-50.1); Hemoglobin 9.4 g/dL (12.9-16.9); Mean Corpuscular HGB Conc 32.1 g/dL (31.6-35.5); Mean Corpuscular Hemoglobin 30.5 pg (28.0-33.3); Mean Corpuscular Volume 95.1 fL (83.0-100.0); Mean Platelet Volume 11.7 fL (9.4-12.4); Platelet Count 112 K/mcL (140-400); Red Blood Count 3.08 M/mcL (4.19-5.50); Red Cell Distribution Width 15.9 % (11.5-14.5); White Blood Count 14.5 K/mcL (4.3-11.1)
[2021-05-07] MEDS: Chlorhexidine Rinse 15 ML MOUTHWASH MM SCH ×2 (07:42→20:05)
[2021-05-07] MEDS: Pantoprazole 40 MG VIAL IVP SCH (07:42)
[2021-05-07] MEDS: Nicotine 21 MG PATCH.TD24 TD SCH (07:42)
[2021-05-07] MEDS ORDERED: Potassium Phosphate 44 MEQ in 0.9 % Sodium Chloride 250 ML IVPB ONE (09:44)
[2021-05-07] MEDS ORDERED: Lidocaine -MPF 2% 2 ML VIAL ONE (11:22)
[2021-05-07] MEDS ORDERED: *HR* Succinylcholine 200 MG/10 ML VIAL IVP ONE (11:22)
[2021-05-07] MEDS ORDERED: Lidocaine HCL 4 ML Topical Solution (Laryng-O-Jet Kit Sterile Pak) TP ONE (11:22)
[2021-05-07] MEDS ORDERED: Ondansetron 4 MG/2 ML VIAL ONE (11:22)
[2021-05-07] MEDS ORDERED: *HR* Midazolam HCl 2 MG/2 ML VIAL ONE (11:23)
[2021-05-07] MEDS ORDERED: *HR* FentaNYL (PF) 100 MCG/2 ML VIAL ONE (11:23)
[2021-05-07] MEDS ORDERED: *HR* Propofol 200 MG/20 ML VIAL IVP ONE (11:23)
[2021-05-07] MEDS ORDERED: *HR* HYDROmorphone PF 0.5 MG/0.5 ML SYRINGE IVP PRN (11:37)
[2021-05-07] MEDS ORDERED: Oxymetazoline Nasal SPRAY BOTTLE NS ONE (12:07)
[2021-05-07] MEDS ORDERED: Lidocaine/EPI 1:100k 1% 50 ML VIAL ONE (12:07)
[2021-05-07] MEDS ORDERED: Sugammadex Sodium 200 MG/2 ML VIAL IV ONE (13:01)
[2021-05-07] MEDS ORDERED: Clinimix E 5%-15% SOLUTION 2,000 ML with MVI, adult with vitamin K 10 ML, Sodium Phos... IVC SCH (17:00)
[2021-05-08] MEDS: Insulin LISPRO 300 UNITS/3 ML VIAL SUBQ SCH ×7 (00:01→23:45)
[2021-05-08] MEDS: Ipratropium/Albuterol Neb 3 ML IH SCH ×4 (04:06→20:56)
[2021-05-08] MEDS ORDERED: *HR* OxyCODONE Oral Soln 5 MG/5 ML UD.LIQ GTUBE ONE (04:18)
[2021-05-08] MEDS: Artificial Tears SOLN 15 ML BOTTLE BOTH EYES SCH ×6 (04:53→23:44)
[2021-05-08] MEDS: *HR* Heparin 5,000 UNIT/ML VIAL SQ SCH ×2 (04:54→16:37)
[2021-05-08 05:54] LABS: Magnesium 2.3 mg/dL (1.6-2.6); Phosphorous 9.4 mg/dL (2.7-4.5)
[2021-05-08] MEDS: Nicotine 21 MG PATCH.TD24 TD SCH (06:55)
[2021-05-08] MEDS: Chlorhexidine Rinse 15 ML MOUTHWASH MM SCH ×2 (06:57→21:27)
[2021-05-08] MEDS: Pantoprazole 40 MG VIAL IVP SCH (06:58)
[2021-05-08 07:16] LABS: Basophils % 0.1 %; Lymphocytes % 5.5 %; Mean Platelet Volume 11.1 fL (9.4-12.4); Monocytes % 6.9 %; Segmented Neutrophils % 86.5 %
[2021-05-08 07:18] LABS: Hematocrit 29.8 % (37.5-50.1); Hemoglobin 9.7 g/dL (12.9-16.9); Immature Platelets 4.2 % (1.1-6.1); Lymphocytes # 0.8 K/mcL (0.6-4.6); Mean Corpuscular HGB Conc 32.6 g/dL (31.6-35.5); Mean Corpuscular Hemoglobin 30.7 pg (28.0-33.3); Mean Corpuscular Volume 94.3 fL (83.0-100.0); Neutrophils # 12.7 K/mcL (1.6-8.9); Platelet Count 145 K/mcL (140-400); Red Blood Count 3.16 M/mcL (4.19-5.50); Red Cell Distribution Width 16.1 % (11.5-14.5); White Blood Count 14.7 K/mcL (4.3-11.1)
[2021-05-08 07:32] LABS: BUN/Creatinine Ratio 43 (6-26); Blood Urea Nitrogen 21 mg/dL (8-23); Calcium 8.8 mg/dL (8.6-10.3); Carbon Dioxide 33 mEq/L (23-29); Chloride 102 mEq/L (98-107); Glucose 84 mg/dL (70-105); Osmolality,Calculated 288 (280-300); Sodium 138 mEq/L (136-145); eGFR For African Americans > 60 (> 60); eGFR For Non-African Americans > 60 (> 60)
[2021-05-08] MEDS ORDERED: Clinimix E 5%-15% SOLUTION 2,000 ML with MVI, adult with vitamin K 10 ML, Sodium Phos... IVC SCH (17:00)
[2021-05-09] MEDS ORDERED: Melatonin 3 MG TABLET PO PRN (02:26)
[2021-05-09] MEDS: Melatonin 3 MG TABLET GTUBE PRN (02:47)
[2021-05-09] MEDS: Artificial Tears SOLN 15 ML BOTTLE BOTH EYES SCH ×5 (04:15→21:01)
[2021-05-09] MEDS: Insulin LISPRO 300 UNITS/3 ML VIAL SUBQ SCH ×5 (04:16→20:55)
[2021-05-09] MEDS: Ipratropium/Albuterol Neb 3 ML IH SCH ×4 (04:17→20:37)
[2021-05-09 04:39] LABS: Basophils % 0.2 %; Eosinophils # 0.1 K/mcL (0.0-0.6); Eosinophils % 0.9 %; Hematocrit 31.2 % (37.5-50.1); Hemoglobin 9.9 g/dL (12.9-16.9); Immature Granulocytes % 1.2 % (0-4); Lymphocytes # 1.4 K/mcL (0.6-4.6); Lymphocytes % 13.5 %; Mean Corpuscular HGB Conc 31.7 g/dL (31.6-35.5); Mean Corpuscular Hemoglobin 30.3 pg (28.0-33.3); Mean Corpuscular Volume 95.4 fL (83.0-100.0); Mean Platelet Volume 10.7 fL (9.4-12.4); Monocytes # 0.7 K/mcL (0.0-1.3); Monocytes % 6.5 %; Neutrophils # 8.2 K/mcL (1.6-8.9); Platelet Count 147 K/mcL (140-400); Red Blood Count 3.27 M/mcL (4.19-5.50); Red Cell Distribution Width 16.1 % (11.5-14.5); Segmented Neutrophils % 77.7 %; White Blood Count 10.5 K/mcL (4.3-11.1)
[2021-05-09 04:48] LABS: BUN/Creatinine Ratio 46 (6-26); Blood Urea Nitrogen 27 mg/dL (8-23); Calcium 8.6 mg/dL (8.6-10.3); Carbon Dioxide 33 mEq/L (23-29); Chloride 100 mEq/L (98-107); Glucose 124 mg/dL (70-105); Magnesium 1.9 mg/dL (1.6-2.6); Osmolality,Calculated 291 (280-300); Phosphorous 3.3 mg/dL (2.7-4.5); Potassium 4.2 mEq/L (3.5-5.1); Sodium 137 mEq/L (136-145); eGFR For African Americans > 60 (> 60); eGFR For Non-African Americans > 60 (> 60)
[2021-05-09] MEDS: *HR* Heparin 5,000 UNIT/ML VIAL SQ SCH ×2 (05:03→16:28)
[2021-05-09] MEDS: *HR* OxyCODONE Oral Soln 5 MG/5 ML UD.LIQ GTUBE ONE ×3 (06:37→08:17)
[2021-05-09] MEDS: Pantoprazole 40 MG VIAL IVP SCH (08:17)
[2021-05-09] MEDS: Nicotine 21 MG PATCH.TD24 TD SCH (08:17)
[2021-05-09] MEDS: Chlorhexidine Rinse 15 ML MOUTHWASH MM SCH ×2 (08:18→21:01)
[2021-05-09] MEDS: Dexmedetomidine HCl 400 MCG/100 ML MLS IVC SCH (11:15)
[2021-05-09] MEDS ORDERED: Clinimix E 5%-15% SOLUTION 2,000 ML with MVI, adult with vitamin K 10 ML, Sodium Phos... IVC SCH (17:00)
[2021-05-10] MEDS: Insulin LISPRO 300 UNITS/3 ML VIAL SUBQ SCH ×6 (00:11→21:03)
[2021-05-10] MEDS: Artificial Tears SOLN 15 ML BOTTLE BOTH EYES SCH ×3 (00:14→09:25)
[2021-05-10] MEDS ORDERED: Haloperidol Lactate 5 MG/ML VIAL IVP ONE (00:57)
[2021-05-10] MEDS: Melatonin 3 MG TABLET GTUBE PRN ×2 (00:59→21:18)
[2021-05-10] MEDS: Ipratropium/Albuterol Neb 3 ML IH SCH ×4 (04:08→19:42)
[2021-05-10] MEDS: *HR* Heparin 5,000 UNIT/ML VIAL SQ SCH ×2 (05:20→17:15)
[2021-05-10 06:22] LABS: Basophils % 0.4 %; Eosinophils # 0.1 K/mcL (0.0-0.6); Hematocrit 31.3 % (37.5-50.1); Immature Granulocytes % 1.7 % (0-4); Lymphocytes % 9.8 %; Mean Corpuscular HGB Conc 31.9 g/dL (31.6-35.5); Mean Corpuscular Hemoglobin 30.1 pg (28.0-33.3); Mean Corpuscular Volume 94.3 fL (83.0-100.0); Mean Platelet Volume 11.5 fL (9.4-12.4); Monocytes # 0.7 K/mcL (0.0-1.3); Monocytes % 7.3 %; Platelet Count 119 K/mcL (140-400); Red Blood Count 3.32 M/mcL (4.19-5.50); Segmented Neutrophils % 79.8 %
[2021-05-10 06:41] LABS: BUN/Creatinine Ratio 44 (6-26); Blood Urea Nitrogen 24 mg/dL (8-23); Calcium 8.6 mg/dL (8.6-10.3); Carbon Dioxide 31 mEq/L (23-29); Chloride 102 mEq/L (98-107); Glucose 92 mg/dL (70-105); Osmolality,Calculated 290 (280-300); Phosphorous 3.4 mg/dL (2.7-4.5); Potassium 4.2 mEq/L (3.5-5.1); Sodium 138 mEq/L (136-145); eGFR For African Americans > 60 (> 60); eGFR For Non-African Americans > 60 (> 60)
[2021-05-10 08:43] LABS: Magnesium 1.8 mg/dL (1.6-2.6)
[2021-05-10] MEDS: Nicotine 21 MG PATCH.TD24 TD SCH (09:24)
[2021-05-10] MEDS: Pantoprazole 40 MG VIAL IVP SCH (09:24)
[2021-05-10] MEDS: Chlorhexidine Rinse 15 ML MOUTHWASH MM SCH (09:29)
[2021-05-10] MEDS: *HR* Dextrose 50 % in Water (Syg) 50 ML SYRINGE IVP PRN (10:59)
[2021-05-10] MEDS: Dexmedetomidine HCl 400 MCG/100 ML MLS IVC SCH (11:06)
[2021-05-10] MEDS ORDERED: *HR* OxyCODONE Oral Soln 5 MG/5 ML UD.LIQ GTUBE ONE (21:41)
[2021-05-11] MEDS: Insulin LISPRO 300 UNITS/3 ML VIAL SUBQ SCH ×6 (00:39→20:56)
[2021-05-11 02:44] LABS: Basophils % 0.3 %; Eosinophils # 0.2 K/mcL (0.0-0.6); Eosinophils % 1.5 %; Hematocrit 30.3 % (37.5-50.1); Hemoglobin 9.7 g/dL (12.9-16.9); Immature Granulocytes % 2.1 % (0-4); Lymphocytes # 1.3 K/mcL (0.6-4.6); Lymphocytes % 12.4 %; Mean Corpuscular Hemoglobin 29.9 pg (28.0-33.3); Mean Corpuscular Volume 93.5 fL (83.0-100.0); Mean Platelet Volume 10.4 fL (9.4-12.4); Monocytes # 0.6 K/mcL (0.0-1.3); Monocytes % 5.7 %; Neutrophils # 8.3 K/mcL (1.6-8.9); Platelet Count 120 K/mcL (140-400); Red Blood Count 3.24 M/mcL (4.19-5.50); Red Cell Distribution Width 16.1 % (11.5-14.5); White Blood Count 10.6 K/mcL (4.3-11.1)
[2021-05-11 03:05] LABS: BUN/Creatinine Ratio 39 (6-26); Blood Urea Nitrogen 24 mg/dL (8-23); Calcium 8.4 mg/dL (8.6-10.3); Carbon Dioxide 30 mEq/L (23-29); Chloride 102 mEq/L (98-107); Glucose 122 mg/dL (70-105); Osmolality,Calculated 287 (280-300); Potassium 4.2 mEq/L (3.5-5.1); Sodium 136 mEq/L (136-145); eGFR For African Americans > 60 (> 60); eGFR For Non-African Americans > 60 (> 60)
[2021-05-11] MEDS: Ipratropium/Albuterol Neb 3 ML IH SCH ×4 (04:02→19:55)
[2021-05-11] MEDS: *HR* Heparin 5,000 UNIT/ML VIAL SQ SCH ×2 (05:45→18:17)
[2021-05-11] MEDS: Nicotine 21 MG PATCH.TD24 TD SCH (08:22)
[2021-05-11] MEDS: *HR* Dextrose 50 % in Water (Syg) 50 ML SYRINGE IVP PRN ×3 (08:22→14:44)
[2021-05-11] MEDS ORDERED: *HR* OxyCODONE Oral Soln 5 MG/5 ML UD.LIQ GTUBE ONE (08:40)
[2021-05-11] MEDS ORDERED: E-Z-HD (BARIUM SULF) SUSPENSION PO ONE (14:27)
[2021-05-11] MEDS ORDERED: Lidocaine/EPI 1:200k 1% PF 10 ML VIAL ONE (15:14)
[2021-05-11] MEDS ORDERED: *HR* Propofol 200 MG/20 ML VIAL IVP ONE (15:47)
[2021-05-11] MEDS ORDERED: *HR* FentaNYL (PF) 100 MCG/2 ML VIAL ONE (15:50)
[2021-05-11] MEDS ORDERED: Insulin LISPRO 300 UNITS/3 ML VIAL SUBQ SCH (18:00)
[2021-05-11] MEDS: Doxycycline 100 MG CAPSULE PO SCH (21:47)
[2021-05-12] MEDS: Ipratropium/Albuterol Neb 3 ML IH SCH ×4 (03:55→21:32)
[2021-05-12 04:59] LABS: Basophils % 0.1 %; Eosinophils # 0.1 K/mcL (0.0-0.6); Hematocrit 29.5 % (37.5-50.1); Hemoglobin 9.7 g/dL (12.9-16.9); Immature Granulocytes % 1.5 % (0-4); Lymphocytes # 1.2 K/mcL (0.6-4.6); Lymphocytes % 8.6 %; Mean Corpuscular HGB Conc 32.9 g/dL (31.6-35.5); Mean Corpuscular Hemoglobin 31.2 pg (28.0-33.3); Mean Corpuscular Volume 94.9 fL (83.0-100.0); Mean Platelet Volume 10.7 fL (9.4-12.4); Monocytes # 0.6 K/mcL (0.0-1.3); Monocytes % 4.1 %; Neutrophils # 11.4 K/mcL (1.6-8.9); Platelet Count 123 K/mcL (140-400); Red Blood Count 3.11 M/mcL (4.19-5.50); Red Cell Distribution Width 16.1 % (11.5-14.5); Segmented Neutrophils % 84.7 %; White Blood Count 13.5 K/mcL (4.3-11.1)
[2021-05-12 05:20] LABS: BUN/Creatinine Ratio 37 (6-26); Blood Urea Nitrogen 25 mg/dL (8-23); Calcium 8.5 mg/dL (8.6-10.3); Carbon Dioxide 30 mEq/L (23-29); Chloride 100 mEq/L (98-107); Glucose 87 mg/dL (70-105); Osmolality,Calculated 282 (280-300); Potassium 4.3 mEq/L (3.5-5.1); Sodium 134 mEq/L (136-145); eGFR For African Americans > 60 (> 60); eGFR For Non-African Americans > 60 (> 60)
[2021-05-12] MEDS: *HR* Heparin 5,000 UNIT/ML VIAL SQ SCH ×2 (06:20→18:13)
[2021-05-12] MEDS: Insulin LISPRO 300 UNITS/3 ML VIAL SUBQ SCH ×4 (09:19→22:08)
[2021-05-12] MEDS: Doxycycline 100 MG CAPSULE PO SCH ×2 (09:36→20:17)
[2021-05-12] MEDS: Nicotine 21 MG PATCH.TD24 TD SCH (09:36)
[2021-05-12] MEDS ORDERED: Melatonin 3 MG TABLET PO PRN (12:26)
[2021-05-13] MEDS: Ipratropium/Albuterol Neb 3 ML IH SCH ×4 (03:48→20:24)
[2021-05-13] MEDS: *HR* Heparin 5,000 UNIT/ML VIAL SQ SCH ×2 (05:50→17:59)
[2021-05-13] MEDS: Insulin LISPRO 300 UNITS/3 ML VIAL SUBQ SCH ×4 (07:34→20:24)
[2021-05-13] MEDS: Doxycycline 100 MG CAPSULE PO SCH ×2 (08:15→20:23)
[2021-05-13] MEDS: Nicotine 21 MG PATCH.TD24 TD SCH (08:15)
[2021-05-14 03:40] VITALS: O2SAT 98
[2021-05-14] MEDS: Ipratropium/Albuterol Neb 3 ML IH SCH ×2 (04:05→08:15)
[2021-05-14] MEDS: *HR* Heparin 5,000 UNIT/ML VIAL SQ SCH (05:22)
[2021-05-14] MEDS: Insulin LISPRO 300 UNITS/3 ML VIAL SUBQ SCH ×2 (09:52→12:23)
[2021-05-14] MEDS: Nicotine 21 MG PATCH.TD24 TD SCH (09:58)
[2021-05-14] MEDS: Doxycycline 100 MG CAPSULE PO SCH (09:59)
[2021-05-14 10:06] LABS: Influenza A PCR Negative (Negative); Influenza B PCR Negative (Negative); Resp. Syncytial Virus PCR Negative (Negative)
[2021-05-14 10:09] LABS: SARS-CoV-2 by PCR (In House) Negative (Negative)
[2021-05-14 14:34] VITALS: BP 119/72; PULSE 82; TEMP 98.1
== END 2021-05-14 15:55 | DRG 4 ==
LOC: ICNU 20:34 → 2NNU 05-05 17:43 → 2ANU 05-09 14:45
PROVIDERS: ADMIT Pediatrics; ATTEND Pediatrics

== ENCOUNTER 2021-08-23 18:49 | Inpatient (IN) ==
[2021-08-24] MEDS ORDERED: *HR* HYDROcodone/Acet 5/325 mg TABLET PO PRN (00:56)
[2021-08-24] MEDS ORDERED: Ondansetron 4 MG/2 ML VIAL IVP PRN (00:56)
[2021-08-24] MEDS ORDERED: Acetaminophen 325 MG TABLET PO PRN (00:56)
[2021-08-24] MEDS ORDERED: Naloxone 0.4 MG/ML INJ IVP PRN (00:56)
[2021-08-24] MEDS ORDERED: Saliva Stimulant 44.3ml BOTTLE PO PRN (01:04)
[2021-08-24] MEDS ORDERED: *HR* Dextrose 50 % in Water (Syg) 50 ML SYRINGE IVP PRN (01:09)
[2021-08-24] MEDS ORDERED: Dextrose Gel 15 GM/37.5 ML TUBE PO PRN ×2 (01:09)
[2021-08-24] MEDS ORDERED: D5% in Water 1,000 ML IVC PRN (01:09)
[2021-08-24 02:08] LABS: Basophils % 0.3 %; Eosinophils % 0.1 %; Hematocrit 33.9 % (37.5-50.1); Hemoglobin 10.7 g/dL (12.9-16.9); Immature Granulocytes % 0.8 % (0-4); Lymphocytes # 0.5 K/mcL (0.6-4.6); Lymphocytes % 4.9 %; Mean Corpuscular HGB Conc 31.6 g/dL (31.6-35.5); Mean Corpuscular Hemoglobin 26.8 pg (28.0-33.3); Mean Corpuscular Volume 84.8 fL (83.0-100.0); Mean Platelet Volume 9.7 fL (9.4-12.4); Monocytes # 0.2 K/mcL (0.0-1.3); Monocytes % 1.8 %; Neutrophils # 8.6 K/mcL (1.6-8.9); Platelet Count 248 K/mcL (140-400); Red Cell Distribution Width 15.7 % (11.5-14.5); Segmented Neutrophils % 92.1 %; White Blood Count 9.3 K/mcL (4.3-11.1)
[2021-08-24 02:22] LABS: Alanine Aminotransferase 56 Units/L (7-52); Albumin 3.1 g/dL (3.5-5.7); Albumin/Globulin Ratio 0.8 (1.1-2.2); Alkaline Phosphatase 90 Units/L (34-104); Aspartate Amino Transferase 47 Units/L (13-39); BUN/Creatinine Ratio 20 (6-26); Bilirubin,Total 0.4 mg/dL (0.3-1.0); Blood Urea Nitrogen 14 mg/dL (8-23); Calcium 8.9 mg/dL (8.6-10.3); Carbon Dioxide 23 mEq/L (23-29); Chloride 106 mEq/L (98-107); Globulin 3.7 g/dL (2.4-3.5); Glucose 191 mg/dL (70-105); Magnesium 1.9 mg/dL (1.6-2.6); Osmolality,Calculated 286 (280-300); Phosphorous 2.9 mg/dL (2.7-4.5); Potassium 4.3 mEq/L (3.5-5.1); Sodium 135 mEq/L (136-145); Total Protein 6.8 g/dL (6.4-8.9); eGFR For African Americans > 60 (> 60); eGFR For Non-African Americans > 60 (> 60)
[2021-08-24 02:25] LABS: INR 1.6; Prothrombin Time 18.1 Seconds (9.4-12.1)
[2021-08-24 02:28] LABS: Activated Partial Thrombo Time 30.6 Seconds (26.0-36.0)
[2021-08-24 03:02] LABS: Adenovirus Not Detected (Not Detect); Bordetella Pertussis Not Detected (Not Detect); Chlamydophila pneumoniae Not Detected (Not Detect); Coronavirus 229E Not Detected (Not Detect); Coronavirus HKU1 Not Detected (Not Detect); Coronavirus NL63 Not Detected (Not Detect); Coronavirus OC43 Not Detected (Not Detect); Human Metapneumovirus DETECTED (Not Detect); Human Rhinovirus/Enterovirus Not Detected (Not Detect); Influenza A Subtype 2009 H1 Not Detected (Not Detect); Influenza B Not Detected (Not Detect); Mycoplasma pneumoniae Not Detected (Not Detect); Parainfluenza Virus 1 Not Detected (Not Detect); Parainfluenza Virus 2 Not Detected (Not Detect); Parainfluenza Virus 3 Not Detected (Not Detect); Parainfluenza Virus 4 Not Detected (Not Detect); Respiratory Syncytial Virus Not Detected (Not Detect); SARS-CoV-2 Not Detected (Not Detect)
[2021-08-24] MEDS: Ipratropium/Albuterol Neb 3 ML IH SCH ×6 (03:59→23:38)
[2021-08-24 04:10] LABS: ABG Base Excess 0 mEq/L (-2 to 3); ABG HCO3 25 mEq/L (21-27); ABG Oxygen Saturation 98 % (95-98); ABG PCO2 43 mmHg (35-45); ABG PH 7.38 pH Units (7.32-7.45); ABG PO2 116 mmHg (85-104); ABG TCO2 27 mEq/L (20-26)
[2021-08-24] MEDS ORDERED: Isovue-370 500 ML BOTTLE IVP ONE ×2 (05:13→13:58)
[2021-08-24] MEDS: Furosemide 20 MG/2 ML VIAL IVP ONE (05:36)
[2021-08-24] MEDS: MethylPREDNISolone 40 MG/ML VIAL IVP SCH ×2 (05:36→17:11)
[2021-08-24] MEDS: *HR* Enoxaparin 40 MG/0.4 ML SYRINGE SQ SCH (05:37)
[2021-08-24 07:00] LABS: Chol/HDL Ratio 4.6 (0-4.9)
[2021-08-24 07:10] LABS: Thyroid Stimulating Hormone 0.229 mcIU/mL (0.340-5.600)
[2021-08-24] MEDS: Budesonide/Formoterol 160/4.5 1 PUFF INH IH SCH ×2 (07:20→19:54)
[2021-08-24] MEDS: Acetylcysteine 10% 2 ML INHSOL IH SCH ×3 (07:22→19:54)
[2021-08-24 07:58] LABS: Estimated Average Glucose 114 mg/dl; Hemoglobin A1C 5.6 %
[2021-08-24] MEDS ORDERED: Lidocaine Viscous Oral Soln 15 ML SOLUTION ONE (08:30)
[2021-08-24] MEDS ORDERED: predniSONE 20 MG TABLET PO SCH (09:00)
[2021-08-24] MEDS: Lactobacillus 1 EACH CAP.SPRINK PO SCH ×2 (09:22→20:54)
[2021-08-24] MEDS: Aspirin 81 MG TAB.CHEW PO SCH (09:22)
[2021-08-24] MEDS: Chlorhexidine Rinse 15 ML MOUTHWASH MM SCH ×2 (09:22→20:54)
[2021-08-24] MEDS ORDERED: Acetylcysteine 10% 2 ML INHSOL IH ONE (09:51)
[2021-08-24] MEDS ORDERED: Lidocaine Viscous Oral Soln 15 ML SOLUTION MM ONE (10:20)
[2021-08-24] MEDS: cefTRIAXone 1,000 MG in 0.9 % Sodium Chloride Mini Bag 100 ML IVPB SCH (10:44)
[2021-08-24] MEDS: Azithromycin 250 MG TABLET PO SCH (10:44)
[2021-08-24] MEDS: Nicotine 21 MG PATCH.TD24 TD SCH (10:44)
[2021-08-24] MEDS: Artificial Tears SOLN 15 ML BOTTLE BOTH EYES SCH ×4 (10:45→20:54)
[2021-08-24] MEDS: Saline Nasal Spray 44 ML BOTTLE NS SCH ×4 (10:45→20:54)
[2021-08-24 14:33] LABS: Bilirubin,Urine Negative (Negative); Blood,Urine Trace (Negative); Clarity,Urine Clear (Clear); Color,Urine Light-Yellow (Yellow); Glucose,Urine (UA) Normal (Normal); Ketones,Urine Negative (Negative); Leukocyte Esterase,Urine Negative (Negative); Nitrite,Urine Negative (Negative); PH,Urine 6.5 pH Units (5.0-8.0); Protein,Urine Trace mg/dL (Neg-Trace); RBC,Urine 15-30 per hpf (0-3); Specific Gravity,Urine > 1.030 (1.010-1.025); Urobilinogen,Urine Normal (Normal); WBC,Urine 0-3 per hpf (0-3)
[2021-08-24 15:00] LABS: Amphetamine Screen,Urine Negative ng/mL (Cutoff=1000); Barbiturate Screen,Urine Negative ng/mL (Cutoff=200); Benzodiazepines Screen,Urine Negative ng/mL (Cutoff=200); Cannabinoid Screen,Urine Negative ng/mL (Cutoff = 50); Cocaine Screen,Urine Negative ng/mL (Cutoff= 300); Opiate Screen,Urine Positive ng/mL (Cutoff=300); Phencyclidine Screen,Urine Negative ng/mL (Cutoff=25)
[2021-08-25] MEDS: Ipratropium/Albuterol Neb 3 ML IH SCH ×6 (03:43→23:54)
[2021-08-25] MEDS: *HR* Enoxaparin 40 MG/0.4 ML SYRINGE SQ SCH (04:49)
[2021-08-25] MEDS: MethylPREDNISolone 40 MG/ML VIAL IVP SCH ×2 (04:49→20:31)
[2021-08-25 05:53] LABS: Basophils % 0.2 %; Hematocrit 32.4 % (37.5-50.1); Hemoglobin 10.4 g/dL (12.9-16.9); Immature Granulocytes % 1.2 % (0-4); Lymphocytes # 0.8 K/mcL (0.6-4.6); Lymphocytes % 7.1 %; Mean Corpuscular HGB Conc 32.1 g/dL (31.6-35.5); Mean Corpuscular Hemoglobin 27.4 pg (28.0-33.3); Mean Corpuscular Volume 85.3 fL (83.0-100.0); Mean Platelet Volume 9.9 fL (9.4-12.4); Monocytes # 0.6 K/mcL (0.0-1.3); Monocytes % 5.1 %; Neutrophils # 9.6 K/mcL (1.6-8.9); Nucleated Red Blood Cells 0.2 /100 WBC (0); Platelet Count 237 K/mcL (140-400); Segmented Neutrophils % 86.4 %; White Blood Count 11.2 K/mcL (4.3-11.1)
[2021-08-25 06:16] LABS: % Iron Saturation 17 % (20-55); BUN/Creatinine Ratio 28 (6-26); Blood Urea Nitrogen 21 mg/dL (8-23); Carbon Dioxide 26 mEq/L (23-29); Chloride 103 mEq/L (98-107); Glucose 145 mg/dL (70-105); Iron 43 mcg/dL (65-175); Osmolality,Calculated 286 (280-300); Potassium 4.6 mEq/L (3.5-5.1); Sodium 135 mEq/L (136-145); Transferrin 182 mg/dL (203-362); eGFR For African Americans > 60 (> 60); eGFR For Non-African Americans > 60 (> 60)
[2021-08-25 06:29] LABS: Ferritin 273 ng/mL (20-250)
[2021-08-25 06:35] LABS: Folate 13.7 ng/mL (3.0-16.0)
[2021-08-25] MEDS: Budesonide/Formoterol 160/4.5 1 PUFF INH IH SCH ×2 (07:29→20:42)
[2021-08-25] MEDS: Acetylcysteine 10% 2 ML INHSOL IH SCH ×3 (07:29→23:54)
[2021-08-25] MEDS: Chlorhexidine Rinse 15 ML MOUTHWASH MM SCH ×2 (08:23→20:31)
[2021-08-25] MEDS: Azithromycin 250 MG TABLET PO SCH (08:23)
[2021-08-25] MEDS: Lactobacillus 1 EACH CAP.SPRINK PO SCH ×2 (08:23→20:31)
[2021-08-25] MEDS: Artificial Tears SOLN 15 ML BOTTLE BOTH EYES SCH ×4 (08:23→19:31)
[2021-08-25] MEDS: Saline Nasal Spray 44 ML BOTTLE NS SCH ×4 (08:23→19:31)
[2021-08-25] MEDS: Aspirin 81 MG TAB.CHEW PO SCH (08:23)
[2021-08-25] MEDS: cefTRIAXone 1,000 MG in 0.9 % Sodium Chloride Mini Bag 100 ML IVPB SCH ×2 (08:54→12:51)
[2021-08-25] MEDS: Nicotine 21 MG PATCH.TD24 TD SCH (08:54)
[2021-08-25] MEDS ORDERED: E-Z-PAQUE (BARIUM SULF) SUSP 1 BOTTLE PO ONE (10:29)
[2021-08-25] MEDS ORDERED: E-Z-HD (BARIUM SULF) SUSPENSION PO ONE (10:29)
[2021-08-26] MEDS: Ipratropium/Albuterol Neb 3 ML IH SCH ×6 (03:51→23:28)
[2021-08-26] MEDS ORDERED: Pantoprazole 40 MG VIAL IVP ONE (03:54)
[2021-08-26] MEDS: *HR* Enoxaparin 40 MG/0.4 ML SYRINGE SQ SCH (04:55)
[2021-08-26] MEDS: MethylPREDNISolone 40 MG/ML VIAL IVP SCH ×2 (05:05→18:15)
[2021-08-26 06:53] LABS: Basophils % 0.1 %; Hematocrit 33.9 % (37.5-50.1); Hemoglobin 10.5 g/dL (12.9-16.9); Immature Granulocytes % 1.6 % (0-4); Lymphocytes # 0.7 K/mcL (0.6-4.6); Lymphocytes % 7.5 %; Mean Corpuscular Hemoglobin 26.2 pg (28.0-33.3); Mean Corpuscular Volume 84.5 fL (83.0-100.0); Mean Platelet Volume 9.8 fL (9.4-12.4); Monocytes # 0.5 K/mcL (0.0-1.3); Monocytes % 4.9 %; Neutrophils # 8.3 K/mcL (1.6-8.9); Platelet Count 245 K/mcL (140-400); Red Blood Count 4.01 M/mcL (4.19-5.50); Red Cell Distribution Width 15.9 % (11.5-14.5); Segmented Neutrophils % 85.9 %; White Blood Count 9.6 K/mcL (4.3-11.1)
[2021-08-26 07:11] LABS: BUN/Creatinine Ratio 28 (6-26); Blood Urea Nitrogen 20 mg/dL (8-23); Calcium 8.8 mg/dL (8.6-10.3); Carbon Dioxide 30 mEq/L (23-29); Chloride 103 mEq/L (98-107); Glucose 148 mg/dL (70-105); Osmolality,Calculated 289 (280-300); Potassium 4.4 mEq/L (3.5-5.1); Sodium 137 mEq/L (136-145); eGFR For African Americans > 60 (> 60); eGFR For Non-African Americans > 60 (> 60)
[2021-08-26] MEDS: Budesonide/Formoterol 160/4.5 1 PUFF INH IH SCH ×2 (07:43→21:11)
[2021-08-26] MEDS: Acetylcysteine 10% 2 ML INHSOL IH SCH ×3 (07:43→21:10)
[2021-08-26] MEDS: Aspirin 81 MG TAB.CHEW PO SCH (08:31)
[2021-08-26] MEDS: Saline Nasal Spray 44 ML BOTTLE NS SCH ×4 (08:31→23:38)
[2021-08-26] MEDS: Artificial Tears SOLN 15 ML BOTTLE BOTH EYES SCH ×4 (08:31→23:38)
[2021-08-26] MEDS: Azithromycin 250 MG TABLET PO SCH (08:32)
[2021-08-26] MEDS: Lactobacillus 1 EACH CAP.SPRINK PO SCH ×2 (08:32→23:37)
[2021-08-26] MEDS: Chlorhexidine Rinse 15 ML MOUTHWASH MM SCH ×2 (08:32→23:37)
[2021-08-26] MEDS: Nicotine 21 MG PATCH.TD24 TD SCH (08:37)
[2021-08-26] MEDS: cefTRIAXone 1,000 MG in 0.9 % Sodium Chloride Mini Bag 100 ML IVPB SCH (08:37)
[2021-08-26] MEDS ORDERED: Ondansetron 4 MG/2 ML VIAL IVP PRN (09:55)
[2021-08-26] MEDS ORDERED: *HR* OxyCODONE Immed Rel 5 MG TABLET PO PRN (09:55)
[2021-08-26] MEDS ORDERED: Promethazine 6.25 MG in Water for inj. (sterile) 20 ML IVPB PRN (09:55)
[2021-08-26] MEDS ORDERED: *HR* HYDROmorphone PF 0.5 MG/0.5 ML SYRINGE IVP PRN (09:55)
[2021-08-26] MEDS ORDERED: Ondansetron 4 MG/2 ML VIAL ONE (09:59)
[2021-08-26] MEDS ORDERED: Lidocaine -MPF 2% 5 ML VIAL ONE (09:59)
[2021-08-26] MEDS ORDERED: Lidocaine -MPF 4% 5 ML AMPUL ONE (10:35)
[2021-08-26] MEDS ORDERED: *HR* Propofol 200 MG/20 ML VIAL IVP ONE (11:03)
[2021-08-26] MEDS: CeFAZolin 2,000 MG/120 ML BAG IVPB SCH ×2 (17:21→23:40)
[2021-08-26] MEDS: Melatonin 3 MG TABLET PO PRN (23:37)
[2021-08-27] MEDS: Ipratropium/Albuterol Neb 3 ML IH SCH ×6 (04:35→23:39)
[2021-08-27] MEDS: MethylPREDNISolone 40 MG/ML VIAL IVP SCH ×2 (05:15→18:07)
[2021-08-27] MEDS: *HR* Enoxaparin 40 MG/0.4 ML SYRINGE SQ SCH (05:15)
[2021-08-27 05:41] LABS: Basophils # 0.1 K/mcL (0.0-0.2); Basophils % 0.4 %; Hematocrit 34.8 % (37.5-50.1); Hemoglobin 10.8 g/dL (12.9-16.9); Immature Granulocytes % 3.9 % (0-4); Lymphocytes % 7.4 %; Mean Corpuscular Hemoglobin 25.8 pg (28.0-33.3); Mean Corpuscular Volume 83.3 fL (83.0-100.0); Mean Platelet Volume 9.4 fL (9.4-12.4); Monocytes % 7.9 %; Neutrophils # 10.4 K/mcL (1.6-8.9); Platelet Count 248 K/mcL (140-400); Red Blood Count 4.18 M/mcL (4.19-5.50); Red Cell Distribution Width 15.9 % (11.5-14.5); Segmented Neutrophils % 80.4 %
[2021-08-27 06:01] LABS: BUN/Creatinine Ratio 29 (6-26); Blood Urea Nitrogen 20 mg/dL (8-23); Calcium 8.6 mg/dL (8.6-10.3); Carbon Dioxide 30 mEq/L (23-29); Chloride 103 mEq/L (98-107); Glucose 129 mg/dL (70-105); Osmolality,Calculated 286 (280-300); Potassium 4.2 mEq/L (3.5-5.1); Sodium 136 mEq/L (136-145); eGFR For African Americans > 60 (> 60); eGFR For Non-African Americans > 60 (> 60)
[2021-08-27] MEDS: Azithromycin 250 MG TABLET PO SCH (08:41)
[2021-08-27] MEDS: Chlorhexidine Rinse 15 ML MOUTHWASH MM SCH ×2 (08:41→21:28)
[2021-08-27] MEDS: Aspirin 81 MG TAB.CHEW PO SCH (08:41)
[2021-08-27] MEDS: Lactobacillus 1 EACH CAP.SPRINK PO SCH ×2 (08:41→21:28)
[2021-08-27] MEDS: Nicotine 21 MG PATCH.TD24 TD SCH (08:41)
[2021-08-27] MEDS: Artificial Tears SOLN 15 ML BOTTLE BOTH EYES SCH ×4 (08:50→22:30)
[2021-08-27] MEDS: Saline Nasal Spray 44 ML BOTTLE NS SCH ×4 (08:50→22:30)
[2021-08-27] MEDS: Budesonide/Formoterol 160/4.5 1 PUFF INH IH SCH ×2 (09:01→19:47)
[2021-08-27] MEDS: Acetylcysteine 10% 2 ML INHSOL IH SCH ×3 (09:02→23:38)
[2021-08-27] MEDS: CeFAZolin 2,000 MG/120 ML BAG IVPB SCH ×3 (09:14→23:45)
[2021-08-28] MEDS: Ipratropium/Albuterol Neb 3 ML IH SCH ×6 (04:02→23:43)
[2021-08-28 06:35] LABS: BUN/Creatinine Ratio 41 (6-26); Blood Urea Nitrogen 28 mg/dL (8-23); Calcium 8.5 mg/dL (8.6-10.3); Carbon Dioxide 30 mEq/L (23-29); Chloride 98 mEq/L (98-107); Glucose 119 mg/dL (70-105); Osmolality,Calculated 283 (280-300); Potassium 4.5 mEq/L (3.5-5.1); Sodium 133 mEq/L (136-145); eGFR For African Americans > 60 (> 60); eGFR For Non-African Americans > 60 (> 60)
[2021-08-28] MEDS: *HR* Enoxaparin 40 MG/0.4 ML SYRINGE SQ SCH (06:58)
[2021-08-28] MEDS: MethylPREDNISolone 40 MG/ML VIAL IVP SCH ×2 (06:58→18:39)
[2021-08-28] MEDS: Budesonide/Formoterol 160/4.5 1 PUFF INH IH SCH ×2 (08:03→20:51)
[2021-08-28] MEDS: Acetylcysteine 10% 2 ML INHSOL IH SCH ×4 (08:03→20:53)
[2021-08-28] MEDS: Aspirin 81 MG TAB.CHEW PO SCH (09:07)
[2021-08-28] MEDS: Lactobacillus 1 EACH CAP.SPRINK PO SCH ×2 (09:07→21:00)
[2021-08-28] MEDS: *HR* OxyCODONE Immed Rel 5 MG TABLET PO PRN ×3 (09:08→21:35)
[2021-08-28] MEDS: Azithromycin 250 MG TABLET PO SCH (09:08)
[2021-08-28] MEDS: Chlorhexidine Rinse 15 ML MOUTHWASH MM SCH ×2 (09:09→21:00)
[2021-08-28] MEDS: Nicotine 21 MG PATCH.TD24 TD SCH (09:09)
[2021-08-28] MEDS: Artificial Tears SOLN 15 ML BOTTLE BOTH EYES SCH ×4 (09:12→20:30)
[2021-08-28] MEDS: CeFAZolin 2,000 MG/120 ML BAG IVPB SCH ×2 (09:14→18:39)
[2021-08-28] MEDS: Saline Nasal Spray 44 ML BOTTLE NS SCH ×4 (09:21→20:30)
[2021-08-28 18:39] LABS: Hematocrit 38.4 % (37.5-50.1); Mean Corpuscular HGB Conc 31.3 g/dL (31.6-35.5); Mean Corpuscular Hemoglobin 25.7 pg (28.0-33.3); Mean Corpuscular Volume 82.2 fL (83.0-100.0); Mean Platelet Volume 9.5 fL (9.4-12.4); Platelet Count 253 K/mcL (140-400); Red Blood Count 4.67 M/mcL (4.19-5.50)
[2021-08-28 18:41] LABS: White Blood Count 16.7 K/mcL (4.3-11.1)
[2021-08-28 19:11] LABS: Monocytes # 0.7 K/mcL (0.0-1.3)
[2021-08-28 19:12] LABS: Platelet Estimate Normal (Normal); Reactive Lymphocytes Present (Not Present)
[2021-08-28] MEDS: Melatonin 3 MG TABLET PO PRN (21:34)
[2021-08-29] MEDS: CeFAZolin 2,000 MG/120 ML BAG IVPB SCH ×3 (00:05→16:26)
[2021-08-29] MEDS: Ipratropium/Albuterol Neb 3 ML IH SCH ×6 (03:51→23:37)
[2021-08-29] MEDS: MethylPREDNISolone 40 MG/ML VIAL IVP SCH ×2 (04:38→16:26)
[2021-08-29] MEDS: *HR* OxyCODONE Immed Rel 5 MG TABLET PO PRN ×3 (04:39→18:01)
[2021-08-29] MEDS: *HR* Enoxaparin 40 MG/0.4 ML SYRINGE SQ SCH (04:39)
[2021-08-29] MEDS: Budesonide/Formoterol 160/4.5 1 PUFF INH IH SCH ×2 (07:59→20:18)
[2021-08-29] MEDS: Acetylcysteine 10% 2 ML INHSOL IH SCH ×3 (07:59→20:18)
[2021-08-29] MEDS ORDERED: Ketorolac 30 MG/ML VIAL IVP ONE (09:11)
[2021-08-29] MEDS: Nicotine 21 MG PATCH.TD24 TD SCH (09:18)
[2021-08-29] MEDS ORDERED: *HR* FentaNYL (PF) 100 MCG/2 ML VIAL IVP PRN (09:30)
[2021-08-29] MEDS ORDERED: *HR* HYDROmorphone PF 0.5 MG/0.5 ML SYRINGE IVP PRN (09:30)
[2021-08-29] MEDS ORDERED: Lidocaine -MPF 2% 5 ML VIAL ONE (10:08)
[2021-08-29] MEDS ORDERED: *HR* Propofol 200 MG/20 ML VIAL IVP ONE ×2 (10:09→10:53)
[2021-08-29] MEDS ORDERED: *HR* FentaNYL (PF) 100 MCG/2 ML VIAL ONE (10:11)
[2021-08-29] MEDS ORDERED: *HR* Midazolam HCl 2 MG/2 ML VIAL ONE (10:14)
[2021-08-29] MEDS: Saline Nasal Spray 44 ML BOTTLE NS SCH ×5 (10:42→21:40)
[2021-08-29] MEDS: Artificial Tears SOLN 15 ML BOTTLE BOTH EYES SCH ×4 (10:42→21:06)
[2021-08-29] MEDS: Chlorhexidine Rinse 15 ML MOUTHWASH MM SCH ×2 (10:42→21:06)
[2021-08-29] MEDS: Aspirin 81 MG TAB.CHEW PO SCH (10:42)
[2021-08-29] MEDS: Lactobacillus 1 EACH CAP.SPRINK PO SCH ×2 (10:43→21:07)
[2021-08-29] MEDS: Azithromycin 250 MG TABLET PO SCH (11:40)
[2021-08-29 12:03] LABS: White Blood Count 14.9 K/mcL (4.3-11.1)
[2021-08-29 12:04] LABS: Hematocrit 36.4 % (37.5-50.1); Hemoglobin 11.6 g/dL (12.9-16.9); Mean Corpuscular HGB Conc 31.9 g/dL (31.6-35.5); Mean Corpuscular Hemoglobin 26.2 pg (28.0-33.3); Mean Corpuscular Volume 82.4 fL (83.0-100.0); Mean Platelet Volume 9.7 fL (9.4-12.4); Nucleated Red Blood Cells 0.1 /100 WBC (0); Platelet Count 218 K/mcL (140-400); Red Blood Count 4.42 M/mcL (4.19-5.50)
[2021-08-29 12:22] LABS: Alanine Aminotransferase 17 Units/L (7-52); Albumin 3.3 g/dL (3.5-5.7); Albumin/Globulin Ratio 0.9 (1.1-2.2); Alkaline Phosphatase 81 Units/L (34-104); Aspartate Amino Transferase 24 Units/L (13-39); BUN/Creatinine Ratio 42 (6-26); Bilirubin,Total 0.3 mg/dL (0.3-1.0); Blood Urea Nitrogen 37 mg/dL (8-23); Calcium 8.7 mg/dL (8.6-10.3); Carbon Dioxide 32 mEq/L (23-29); Chloride 97 mEq/L (98-107); Globulin 3.6 g/dL (2.4-3.5); Glucose 117 mg/dL (70-105); Osmolality,Calculated 292 (280-300); Potassium 4.2 mEq/L (3.5-5.1); Sodium 136 mEq/L (136-145); Total Protein 6.9 g/dL (6.4-8.9); eGFR For African Americans > 60 (> 60); eGFR For Non-African Americans > 60 (> 60)
[2021-08-29 12:51] LABS: Lymphocytes # 1.8 K/mcL (0.6-4.6); Monocytes # 0.2 K/mcL (0.0-1.3); Neutrophils # 12.4 K/mcL (1.6-8.9); Platelet Estimate Normal (Normal); Reactive Lymphocytes Present (Not Present)
[2021-08-29] MEDS: Melatonin 3 MG TABLET PO PRN (21:07)
[2021-08-30] MEDS: CeFAZolin 2,000 MG/120 ML BAG IVPB SCH ×3 (00:07→16:41)
[2021-08-30] MEDS: *HR* OxyCODONE Immed Rel 5 MG TABLET PO PRN ×3 (00:07→21:21)
[2021-08-30] MEDS ORDERED: *HR* HYDROmorphone (PF) 1 MG/ML SYRINGE IVP ONE (00:52)
[2021-08-30] MEDS: Ipratropium/Albuterol Neb 3 ML IH SCH ×6 (03:46→23:52)
[2021-08-30] MEDS: *HR* Enoxaparin 40 MG/0.4 ML SYRINGE SQ SCH (06:07)
[2021-08-30] MEDS: MethylPREDNISolone 40 MG/ML VIAL IVP SCH (06:07)
[2021-08-30] MEDS: Acetylcysteine 10% 2 ML INHSOL IH SCH ×3 (07:25→23:52)
[2021-08-30] MEDS: Budesonide/Formoterol 160/4.5 1 PUFF INH IH SCH ×2 (07:25→21:03)
[2021-08-30] MEDS: Lactobacillus 1 EACH CAP.SPRINK PO SCH ×2 (08:52→21:32)
[2021-08-30] MEDS: Azithromycin 250 MG TABLET PO SCH (08:52)
[2021-08-30] MEDS: Artificial Tears SOLN 15 ML BOTTLE BOTH EYES SCH ×4 (08:53→21:25)
[2021-08-30] MEDS: Aspirin 81 MG TAB.CHEW PO SCH (08:53)
[2021-08-30] MEDS: Saline Nasal Spray 44 ML BOTTLE NS SCH ×3 (08:54→16:42)
[2021-08-30] MEDS: Chlorhexidine Rinse 15 ML MOUTHWASH MM SCH ×2 (08:54→21:32)
[2021-08-30] MEDS: Nicotine 21 MG PATCH.TD24 TD SCH (08:54)
[2021-08-30 09:09] LABS: Basophils # 0.1 K/mcL (0.0-0.2); Basophils % 0.7 %; Hematocrit 40.3 % (37.5-50.1); Hemoglobin 12.7 g/dL (12.9-16.9); Immature Granulocytes % 4.4 % (0-4); Lymphocytes # 1.4 K/mcL (0.6-4.6); Lymphocytes % 6.7 %; Mean Corpuscular HGB Conc 31.5 g/dL (31.6-35.5); Mean Corpuscular Hemoglobin 26.4 pg (28.0-33.3); Mean Corpuscular Volume 83.8 fL (83.0-100.0); Mean Platelet Volume 9.8 fL (9.4-12.4); Monocytes % 4.7 %; Neutrophils # 17.8 K/mcL (1.6-8.9); Platelet Count 219 K/mcL (140-400); Red Blood Count 4.81 M/mcL (4.19-5.50); Red Cell Distribution Width 15.9 % (11.5-14.5); Segmented Neutrophils % 83.5 %; White Blood Count 21.4 K/mcL (4.3-11.1)
[2021-08-30 09:25] LABS: BUN/Creatinine Ratio 43 (6-26); Blood Urea Nitrogen 30 mg/dL (8-23); Calcium 9.1 mg/dL (8.6-10.3); Carbon Dioxide 30 mEq/L (23-29); Chloride 96 mEq/L (98-107); Glucose 107 mg/dL (70-105); Osmolality,Calculated 277 (280-300); Potassium 4.3 mEq/L (3.5-5.1); Sodium 130 mEq/L (136-145); eGFR For African Americans > 60 (> 60); eGFR For Non-African Americans > 60 (> 60)
[2021-08-30] MEDS: Melatonin 3 MG TABLET PO PRN (21:23)
[2021-08-31] MEDS: CeFAZolin 2,000 MG/120 ML BAG IVPB SCH ×4 (00:16→23:59)
[2021-08-31] MEDS: Ipratropium/Albuterol Neb 3 ML IH SCH ×5 (04:23→21:03)
[2021-08-31] MEDS: Acetylcysteine 10% 2 ML INHSOL IH SCH ×3 (04:24→21:03)
[2021-08-31] MEDS: Saline Nasal Spray 44 ML BOTTLE NS SCH ×5 (04:49→20:31)
[2021-08-31] MEDS: *HR* Enoxaparin 40 MG/0.4 ML SYRINGE SQ SCH (05:07)
[2021-08-31] MEDS: Budesonide/Formoterol 160/4.5 1 PUFF INH IH SCH ×2 (07:30→21:03)
[2021-08-31] MEDS: Azithromycin 250 MG TABLET PO SCH (09:52)
[2021-08-31] MEDS: Nicotine 21 MG PATCH.TD24 TD SCH (09:52)
[2021-08-31] MEDS: Aspirin 81 MG TAB.CHEW PO SCH (09:52)
[2021-08-31] MEDS: Lactobacillus 1 EACH CAP.SPRINK PO SCH ×2 (09:52→20:29)
[2021-08-31] MEDS: MethylPREDNISolone 40 MG/ML VIAL IVP SCH (09:53)
[2021-08-31] MEDS: Chlorhexidine Rinse 15 ML MOUTHWASH MM SCH ×2 (09:53→20:38)
[2021-08-31] MEDS: Artificial Tears SOLN 15 ML BOTTLE BOTH EYES SCH ×4 (10:40→20:31)
[2021-08-31 10:50] LABS: Hematocrit 39.6 % (37.5-50.1); Hemoglobin 12.3 g/dL (12.9-16.9); Mean Corpuscular HGB Conc 31.1 g/dL (31.6-35.5); Mean Corpuscular Hemoglobin 25.7 pg (28.0-33.3); Mean Corpuscular Volume 82.8 fL (83.0-100.0); Mean Platelet Volume 9.8 fL (9.4-12.4); Platelet Count 212 K/mcL (140-400); Red Blood Count 4.78 M/mcL (4.19-5.50); Red Cell Distribution Width 15.8 % (11.5-14.5); White Blood Count 18.4 K/mcL (4.3-11.1)
[2021-08-31 11:10] LABS: Alanine Aminotransferase 16 Units/L (7-52); Albumin 3.3 g/dL (3.5-5.7); Albumin/Globulin Ratio 0.9 (1.1-2.2); Alkaline Phosphatase 99 Units/L (34-104); Aspartate Amino Transferase 34 Units/L (13-39); Bilirubin,Total 0.4 mg/dL (0.3-1.0); Blood Urea Nitrogen 31 mg/dL (8-23); Calcium 8.7 mg/dL (8.6-10.3); Carbon Dioxide 32 mEq/L (23-29); Chloride 97 mEq/L (98-107); Globulin 3.6 g/dL (2.4-3.5); Glucose 96 mg/dL (70-105); Osmolality,Calculated 282 (280-300); Potassium 3.9 mEq/L (3.5-5.1); Sodium 133 mEq/L (136-145); Total Protein 6.9 g/dL (6.4-8.9)
[2021-08-31 11:16] LABS: Eosinophils # 0.2 K/mcL (0.0-0.6); Lymphocytes # 4.4 K/mcL (0.6-4.6); Monocytes # 0.9 K/mcL (0.0-1.3); Neutrophils # 12.7 K/mcL (1.6-8.9)
[2021-08-31 11:17] LABS: Platelet Estimate Normal (Normal); Reactive Lymphocytes Present (Not Present)
[2021-08-31 13:00] LABS: BUN/Creatinine Ratio 38 (6-26); eGFR For African Americans > 60 (> 60); eGFR For Non-African Americans > 60 (> 60)
[2021-08-31] MEDS: *HR* OxyCODONE Immed Rel 5 MG TABLET PO PRN (20:29)
[2021-08-31] MEDS ORDERED: Ketorolac 30 MG/ML VIAL IVP ONE (21:48)
[2021-08-31] MEDS: Melatonin 3 MG TABLET PO PRN (21:59)
[2021-09-01] MEDS: Ipratropium/Albuterol Neb 3 ML IH SCH ×5 (00:21→16:04)
[2021-09-01 01:17] LABS: Basophils # 0.1 K/mcL (0.0-0.2); Basophils % 0.4 %; Eosinophils % 0.1 %; Hematocrit 36.3 % (37.5-50.1); Hemoglobin 11.9 g/dL (12.9-16.9); Immature Granulocytes % 4.4 % (0-4); Lymphocytes # 1.9 K/mcL (0.6-4.6); Lymphocytes % 9.4 %; Mean Corpuscular HGB Conc 32.8 g/dL (31.6-35.5); Mean Corpuscular Hemoglobin 26.7 pg (28.0-33.3); Mean Corpuscular Volume 81.4 fL (83.0-100.0); Mean Platelet Volume 9.9 fL (9.4-12.4); Monocytes # 1.5 K/mcL (0.0-1.3); Monocytes % 7.1 %; Neutrophils # 16.2 K/mcL (1.6-8.9); Platelet Count 191 K/mcL (140-400); Red Blood Count 4.46 M/mcL (4.19-5.50); Red Cell Distribution Width 15.6 % (11.5-14.5); Segmented Neutrophils % 78.6 %; White Blood Count 20.6 K/mcL (4.3-11.1)
[2021-09-01 01:33] LABS: BUN/Creatinine Ratio 37 (6-26); Blood Urea Nitrogen 26 mg/dL (8-23); Calcium 8.6 mg/dL (8.6-10.3); Carbon Dioxide 28 mEq/L (23-29); Chloride 96 mEq/L (98-107); Glucose 95 mg/dL (70-105); Osmolality,Calculated 277 (280-300); Potassium 4.3 mEq/L (3.5-5.1); Sodium 131 mEq/L (136-145); eGFR For African Americans > 60 (> 60); eGFR For Non-African Americans > 60 (> 60)
[2021-09-01] MEDS: *HR* Enoxaparin 40 MG/0.4 ML SYRINGE SQ SCH (06:34)
[2021-09-01] MEDS: Aspirin 81 MG TAB.CHEW PO SCH (08:12)
[2021-09-01] MEDS: Lactobacillus 1 EACH CAP.SPRINK PO SCH (08:12)
[2021-09-01] MEDS: MethylPREDNISolone 40 MG/ML VIAL IVP SCH (08:12)
[2021-09-01] MEDS: Chlorhexidine Rinse 15 ML MOUTHWASH MM SCH (08:12)
[2021-09-01] MEDS: *HR* OxyCODONE Immed Rel 5 MG TABLET PO PRN (08:12)
[2021-09-01] MEDS: Azithromycin 250 MG TABLET PO SCH (08:14)
[2021-09-01] MEDS: Artificial Tears SOLN 15 ML BOTTLE BOTH EYES SCH ×3 (08:14→16:28)
[2021-09-01] MEDS: Acetylcysteine 10% 2 ML INHSOL IH SCH ×2 (08:38→16:04)
[2021-09-01] MEDS: Budesonide/Formoterol 160/4.5 1 PUFF INH IH SCH (08:39)
[2021-09-01] MEDS: CeFAZolin 2,000 MG/120 ML BAG IVPB SCH (10:27)
[2021-09-01] MEDS: Nicotine 21 MG PATCH.TD24 TD SCH (10:27)
[2021-09-01] MEDS: Saline Nasal Spray 44 ML BOTTLE NS SCH ×3 (11:52→16:28)
[2021-09-01] MEDS: Ketorolac 30 MG/ML VIAL IVP PRN ×2 (13:05→18:26)
[2021-09-01] MEDS ORDERED: levoFLOXacin 750 MG/150 ML 750 MG/150 ML BAG IVPB ONE (13:40)
[2021-09-01] MEDS ORDERED: amLODIPine 5 MG TABLET PO SCH (14:15)
[2021-09-01 16:51] VITALS: PULSE 105; TEMP 98.7; O2SAT 99
[2021-09-01 17:27] VITALS: BP 170/95
[2021-09-01] MEDS ORDERED: Ketorolac 30 MG/ML VIAL IVP ONE (21:37)
[2021-09-02] MEDS ORDERED: predniSONE 20 MG TABLET GTUBE SCH (09:00)
[2021-09-02] MEDS ORDERED: levoFLOXacin 750 MG/150 ML 750 MG/150 ML BAG IVPB SCH ×2 (09:00→14:00)
== END 2021-09-01 19:57 | disposition home health service (06) | DRG 193 ==
LOC: 3NENU → SUATTDRO 08-24 00:08
PROVIDERS: ADMIT Internal Medicine; ATTEND Internal Medicine